=== PATIENT | male | born 1990 | race African-American/Black ===

== ENCOUNTER 2019-01-17 21:08 | Emergency (ER) | payer MEDICAID, OTHER ==
[~2019-01-17] VITALS: Ht 175.3 cm; Wt 68.0 kg
[2019-01-17 21:34] VITALS: BP_SYST 137
[2019-01-18] MEDS ORDERED: SULFAMETHOXAZOLE/TRIMETHOPR DS 1 TABLET PO ONE
[2019-01-18] MEDS ORDERED: IBUPROFEN 800 MG TABLET PO ONE
[2019-01-18 00:15] VITALS: BP_SYST 137
== END 2019-01-18 00:15 | disposition home or self-care (01) ==
LOC: SED 21:08
DX: L08.89 Other specified local infections of the skin and subcutaneous tissue (principal); F17.200 Nicotine dependence, unspecified, uncomplicated; R03.0 Elevated blood-pressure reading, without diagnosis of hypertension; Z71.6 Tobacco abuse counseling
CPT/HCPCS: 99283

== ENCOUNTER 2019-01-21 00:35 | Emergency (ER) | payer OTHER ==
[~2019-01-21] VITALS: Ht 175.3 cm; Wt 68.0 kg
[2019-01-21 00:40] VITALS: BP_SYST 151
== END 2019-01-21 01:45 | disposition left against medical advice (07) ==
LOC: SED 00:35
DX: L03.113 Cellulitis of right upper limb (principal); Z53.21 Procedure and treatment not carried out due to patient leaving prior to being seen by health care provider

== ENCOUNTER 2019-01-30 12:09 | Emergency (ER) | payer OTHER ==
[~2019-01-30] VITALS: Ht 175.3 cm; Wt 68.0 kg
[2019-01-30 12:10] VITALS: BP_SYST 149
--- NOTE | 2019-01-30 12:10 | NUR ---
Patient triaged and placed in waiting room. VSS and patient appears in no acute distress at this time. Accompanied by FRIEND, awaiting available bed, and MD notified of need for MSE.
--- NOTE | 2019-01-30 12:59 | NUR ---
BROUGHT BACK TO BED #6 AND REPORT GIVEN TO RON
--- NOTE | 2019-01-30 13:03 | NUR ---
FOOD OFFERED TO PT. PT GIVEN MEAL
--- NOTE | 2019-01-30 13:30 | NUR ---
Patient awake, alert, oriented x 4. Patient brought in by self. Patient is homeless. Patient came in for right index finger swelling and pain. Patient reports 10/10 throbbing, aching pain and numbness in right index finger. Patient reports taking Bactrim, stopped two days ago because he was unable to get prescription refilled. No signs or symptoms of distress noted.
--- NOTE | 2019-01-30 13:54 | NUR ---
SILVIA Hurtado at bedside examining patient.
[2019-01-30] MEDS ORDERED: CLINDAMYCIN 300 MG in D5W 50 ML IV ONE (14:15)
[2019-01-30] MEDS ORDERED: NS 1000 ML IV.SOLN IV ONE (14:15)
[2019-01-30] MEDS ORDERED: GENTAMICIN 80 mg/100 mL NS 100 ML IV ONE (14:15)
--- NOTE | 2019-01-30 14:30 | NUR ---
Patient walked out. Girlfriend at bedside says "He just left. I don't know where he went." Waiting to see if he went out only for a cigarette. aware.
--- NOTE | 2019-01-30 14:40 | NUR ---
X-ray came looking for patient. Informed them that patient is not here at this time.
--- NOTE | 2019-01-30 14:45 | NUR ---
Phlebotomy came looking for patient. Informed them that patient is not here at this time.
== END 2019-01-30 14:50 | disposition left against medical advice (07) ==
LOC: SED 12:09
DX: L03.011 Cellulitis of right finger (principal); F17.200 Nicotine dependence, unspecified, uncomplicated; Z71.6 Tobacco abuse counseling; Z53.20 Procedure and treatment not carried out because of patient's decision for unspecified reasons
CPT/HCPCS: 36415; 99281

== ENCOUNTER 2019-01-30 21:23 | Inpatient (IN) | payer OTHER ==
[~2019-01-30] VITALS: Ht 175.3 cm; Wt 74.6 kg
[2019-01-30 21:25] VITALS: BP_SYST 147
[2019-01-30] MEDS ORDERED: PIPERACILLIN/TAZO 3.375 GM in NS 50 ML IV ONE (22:00)
[2019-01-30] MEDS ORDERED: NACL 0.9% 1,000 ML IV ONE (22:00)
[2019-01-30 22:26] LABS: BASOPHILS % (AUTO) 0.3 % (0.0-2.0); EOSINOPHILS # (AUTO) 0.3 K/uL (0.0-0.4); EOSINOPHILS % (AUTO) 2.8 % (0.0-4.0); HEMATOCRIT 35.8 % (36-54); HEMOGLOBIN 12.1 g/dL (14.0-18.0); LYMPHOCYTES # (AUTO) 1.7 K/uL (1.0-5.5); LYMPHOCYTES % (AUTO) 17.9 % (20.5-51.5); MEAN CORPUSCULAR HEMOGLOBIN 25 pg (27-31); MEAN CORPUSCULAR HGB CONC 34 % (32-36); MEAN CORPUSCULAR VOLUME 75 fL (79.0-98.0); MONOCYTES # (AUTO) 0.5 K/uL (0.0-1.0); MONOCYTES % (AUTO) 5.3 % (1.7-9.3); NEUTROPHILS # (AUTO) 6.8 K/uL (1.8-7.7); NEUTROPHILS % (AUTO) 73.7 % (40.0-70.0); PLATELET COUNT (AUTO) 304 K/uL (130-430); RED CELL DISTRIBUTION WIDTH 17.7 % (9.0-15.0); WHITE BLOOD COUNT (AUTO) 9.2 K/uL (4.8-10.8)
[2019-01-30] MEDS ORDERED: MORPHINE 4 MG/ML INJ. SYRINGE IVP ONE (22:30)
[2019-01-30 22:43] LABS: CALCIUM 9.4 mg/dL (8.4-11.0); CREATININE 1.25 mg/dL (0.55-1.30); POTASSIUM 3.7 mmol/L (3.5-5.1)
[2019-01-30 22:48] LABS: ALBUMIN 3.4 g/dL (3.4-4.8); TOTAL BILIRUBIN 0.2 mg/dL (0.0-1.0)
[2019-01-30] MEDS ORDERED: HYDROcodone/ACETAMIN 5-325 MG TAB (NORCO/ VICODIN) PO PRN (23:45)
[2019-01-30] MEDS ORDERED: ACETAMINOPHEN 325 MG TABLET PO PRN (23:45)
[2019-01-31 00:16] VITALS: BP_SYST 148
[2019-01-31] MEDS: CLINDAMYCIN 600 mg/50mL D5W 50 ML IV SCH ×2 (00:54→05:02)
[2019-01-31] MEDS ORDERED: CLINDAMYCIN 600 mg/50mL D5W 100 ML IV ONE (00:54)
[2019-01-31 07:35] VITALS: BP_SYST 133
[2019-01-31] MEDS: HYDROcodone/ACETAMIN 10-325 MG TAB PO PRN ×3 (09:01→22:13)
[2019-01-31] MEDS: AMPICILLIN SODIUM/SULBACTAM NA 3 GM in NS 100 ML IV SCH ×3 (11:37→23:21)
[2019-01-31 12:46] VITALS: BP_SYST 134
[2019-01-31 16:24] VITALS: BP_SYST 116
[2019-01-31 20:00] VITALS: BP_SYST 132
[2019-02-01 01:31] VITALS: BP_SYST 128
[2019-02-01] MEDS: AMPICILLIN SODIUM/SULBACTAM NA 3 GM in NS 100 ML IV SCH (05:17)
[2019-02-01 08:05] VITALS: BP_SYST 126
[2019-02-01] MEDS: HYDROcodone/ACETAMIN 10-325 MG TAB PO PRN ×2 (10:10→20:42)
[2019-02-01 11:11] VITALS: BP_SYST 114
[2019-02-01 12:55] LABS: BASOPHILS # (AUTO) 0.1 K/uL (0.0-0.2); BASOPHILS % (AUTO) 0.9 % (0.0-2.0); EOSINOPHILS # (AUTO) 0.5 K/uL (0.0-0.4); EOSINOPHILS % (AUTO) 6.6 % (0.0-4.0); HEMATOCRIT 37.8 % (36-54); HEMOGLOBIN 12.8 g/dL (14.0-18.0); LYMPHOCYTES # (AUTO) 2.1 K/uL (1.0-5.5); LYMPHOCYTES % (AUTO) 24.6 % (20.5-51.5); MEAN CORPUSCULAR HEMOGLOBIN 26 pg (27-31); MEAN CORPUSCULAR HGB CONC 34 % (32-36); MEAN CORPUSCULAR VOLUME 76 fL (79.0-98.0); MONOCYTES # (AUTO) 0.6 K/uL (0.0-1.0); MONOCYTES % (AUTO) 6.8 % (1.7-9.3); NEUTROPHILS # (AUTO) 5.1 K/uL (1.8-7.7); NEUTROPHILS % (AUTO) 61.1 % (40.0-70.0); PLATELET COUNT (AUTO) 288 K/uL (130-430); RED BLOOD CELL COUNT(AUTO) 4.99 MIL/uL (4.2-6.2); RED CELL DISTRIBUTION WIDTH 18.4 % (9.0-15.0); WHITE BLOOD COUNT (AUTO) 8.3 K/uL (4.8-10.8)
[2019-02-01 13:06] LABS: CALCIUM 9.1 mg/dL (8.4-11.0); CREATININE 1.13 mg/dL (0.55-1.30); POTASSIUM 3.8 mmol/L (3.5-5.1)
[2019-02-01] MEDS: PIPERACILLIN/TAZO 3.375/DEX-IS 50 ML IV SCH ×3 (13:36→23:34)
[2019-02-01 15:59] VITALS: BP_SYST 122
[2019-02-01 20:00] VITALS: BP_SYST 116
[2019-02-02] VITALS: BP_SYST 126
[2019-02-02] MEDS: HYDROcodone/ACETAMIN 10-325 MG TAB PO PRN ×2 (03:45→12:24)
[2019-02-02] MEDS: PIPERACILLIN/TAZO 3.375/DEX-IS 50 ML IV SCH ×3 (05:27→17:34)
[2019-02-02 08:00] VITALS: BP_SYST 119
[2019-02-02 12:00] VITALS: BP_SYST 129
[2019-02-02 13:00] VITALS: BP_SYST 110
[2019-02-02 16:00] VITALS: BP_SYST 110
== END 2019-02-02 19:15 | disposition short-term general hospital (02) | DRG 351 ==
LOC: SED 21:23 → SMU 23:48
PROVIDERS: ADMIT Internal Medicine; ATTEND Internal Medicine
DX: M79.5 Residual foreign body in soft tissue (principal); M86.8X4 Other osteomyelitis, hand; L03.011 Cellulitis of right finger; Z60.2 Problems related to living alone
CPT/HCPCS: 36415; 73140-TC; 80048; 80053; 83605; 85025; 87040-TC; 96375; 99285; J0295; J1956; J2270; J2543; J3490; J7030

== ENCOUNTER 2019-02-08 23:15 | Emergency (ER) | payer OTHER ==
[~2019-02-08] VITALS: Ht 175.3 cm; Wt 68.0 kg
--- NOTE | 2019-02-08 23:19 | NUR ---
Patient to ER bed 4 to gown for evaluation. Side rails up.
[2019-02-08 23:25] VITALS: BP_SYST 132
--- NOTE | 2019-02-08 23:30 | NUR ---
2330 - Assumed care of pt. Pt seen here previously for right hand 2nd digit cellulitis. Pt states condition has improved since previous visit, but has had difficulty finding follow up care. Pt to soak finger in normal saline/betadine solution.
--- NOTE | 2019-02-08 23:30 | NUR ---
2330 - ER at bedside examining patient.
[2019-02-08] MEDS ORDERED: BACITRACIN 1 GM OINT TP ONE ×2 (23:45→23:58)
[2019-02-09 00:09] VITALS: BP_SYST 132
--- NOTE | 2019-02-09 00:09 | NUR ---
0009 - Patient given written and verbal discharge instructions and verbalizes understanding. ER MD discussed with patient the results and treatment provided. Patient in stable condition. ID arm band removed. IV catheter removed intact and dressing applied, no active bleeding. Rx of mupirocin given. Patient educated on pain management and to follow up with PMD. Opportunity for questions provided and answered. Medication side effect fact sheet provided.
== END 2019-02-09 00:09 | disposition home or self-care (01) ==
LOC: SED 23:15
DX: L03.011 Cellulitis of right finger (principal)
CPT/HCPCS: 99283

== ENCOUNTER 2019-02-16 14:07 | Emergency (ER) | payer OTHER ==
[~2019-02-16] VITALS: Ht 175.3 cm; Wt 68.0 kg
[2019-02-16 14:20] VITALS: BP_SYST 121
[2019-02-16 14:56] VITALS: BP_SYST 121
== END 2019-02-16 14:55 | disposition home or self-care (01) ==
LOC: SED 14:07
DX: L02.511 Cutaneous abscess of right hand (principal); L03.011 Cellulitis of right finger
CPT/HCPCS: 99283

== ENCOUNTER 2019-03-15 14:16 | Emergency (ER) | payer OTHER ==
[~2019-03-15] VITALS: Ht 175.3 cm; Wt 63.5 kg
[2019-03-15 14:17] VITALS: BP_SYST 151
[2019-03-15 17:05] VITALS: BP_SYST 140
[2019-03-15] MEDS ORDERED: BACITRACIN 1 GM OINT TP ONE (17:20)
== END 2019-03-15 17:05 | disposition left against medical advice (07) ==
LOC: SED 14:16
DX: S62.630A Displaced fracture of distal phalanx of right index finger, initial encounter for closed fracture (principal); M86.8X4 Other osteomyelitis, hand; L03.011 Cellulitis of right finger; R03.0 Elevated blood-pressure reading, without diagnosis of hypertension; X58.XXXA Exposure to other specified factors, initial encounter; Y93.89 Activity, other specified; Y92.89 Other specified places as the place of occurrence of the external cause; Y99.8 Other external cause status
CPT/HCPCS: 73140-TC; 99283

== ENCOUNTER 2019-05-30 21:56 | Emergency (ER) | payer OTHER ==
[~2019-05-30] VITALS: Ht 175.3 cm; Wt 72.6 kg
[2019-05-30 22:00] VITALS: BP_SYST 135
[2019-05-31 00:50] VITALS: BP_SYST 122
== END 2019-05-31 00:50 | disposition home or self-care (01) ==
LOC: SED 21:56
DX: B86 Scabies (principal); L03.012 Cellulitis of left finger
CPT/HCPCS: 99283

== ENCOUNTER 2019-10-30 22:32 | Emergency (ER) | payer SELFPAY ==
[~2019-10-30] VITALS: Ht 175.3 cm; Wt 81.6 kg
[2019-10-30 23:30] VITALS: BP_SYST 147
--- NOTE | 2019-10-31 03:06 | NUR ---
Per paper control clerk, pt LWBS.
--- NOTE | 2019-10-31 03:06 | NUR ---
Patient left without being seen. No further treatment provided. ER MD aware
== END 2019-10-31 03:06 | disposition left against medical advice (07) ==
LOC: SED 22:32
DX: N39.0 Urinary tract infection, site not specified (principal); Z53.21 Procedure and treatment not carried out due to patient leaving prior to being seen by health care provider

== ENCOUNTER 2019-11-18 11:11 | Emergency (ER) | payer OTHER ==
[~2019-11-18] VITALS: Ht 180.3 cm; Wt 78.0 kg
--- NOTE | 2019-11-18 11:20 | NUR ---
PT SEEN IN TRAGE BY
[2019-11-18 11:22] VITALS: BP_SYST 121
--- NOTE | 2019-11-18 11:22 | NUR ---
PT PRESENTS TO ED C/O POSSIBLE SCABIES.
[2019-11-18 12:00] VITALS: BP_SYST 121
--- NOTE | 2019-11-18 12:00 | NUR ---
Patient given written and verbal discharge instructions and verbalizes understanding. ER MD discussed with patient the results and treatment provided. Patient in stable condition. ID arm band removed. Rx of PERMETHRIN CREAM given. Patient educated on pain management and to follow up with PMD. Pain Scale 0 Opportunity for questions provided and answered. Medication side effect fact sheet provided. PT LEFT W/O ACI AND RX
== END 2019-11-18 12:00 | disposition home or self-care (01) ==
LOC: SED 11:11
DX: B86 Scabies (principal)
CPT/HCPCS: 99282

== ENCOUNTER 2019-12-07 02:58 | Emergency (ER) | payer OTHER ==
[~2019-12-07] VITALS: Ht 175.3 cm; Wt 72.6 kg
[2019-12-07 03:24] VITALS: BP_SYST 155
[2019-12-07 03:42] LABS: BILIRUBIN,URINE NEGATIVE (NEGATIVE); CLARITY/URINE CLEAR (CLEAR); COLOR,URINE YELLOW (YELLOW); GLUCOSE,URINE NEGATIVE (NEGATIVE); KETONES,URINE NEGATIVE (NEGATIVE); LEUKOCYTE ESTERASE ,URINE 2+ (NEGATIVE); NITRITE, URINE NEGATIVE (NEGATIVE); PROTEIN URINE NEGATIVE (NEGATIVE); UROBILINOGEN,URINE 0.2 (0.2-1.0)
[2019-12-07 03:46] LABS: BLOOD, URINE TRACE (NEGATIVE)
[2019-12-07 03:48] LABS: BACTERIA,URINE FEW /HPF (None Seen); WBC,URINE 50-80 /HPF (0-3)
[2019-12-07] MEDS ORDERED: AZITHROMYCIN 250 MG TABLET PO ONE (04:30)
[2019-12-07] MEDS ORDERED: PENICILLIN G BENZATHINE 1.2 MMU/2 ML SYR IM ONE (04:30)
[2019-12-07] MEDS ORDERED: cefTRIAXone 0.75 GM in LIDOCAINE 1%, 20 ML MDV 2.1 ML IM ONE (04:30)
[2019-12-07 05:00] VITALS: BP_SYST 139
== END 2019-12-07 05:00 | disposition home or self-care (01) ==
LOC: SED 02:58
DX: N34.2 Other urethritis (principal); F17.210 Nicotine dependence, cigarettes, uncomplicated
CPT/HCPCS: 81000; 87086; 96372; 99283; J0561; J0696; J2001; Q0144

== ENCOUNTER 2019-12-27 04:13 | Emergency (ER) | payer MEDICAID, OTHER ==
[~2019-12-27] VITALS: Ht 175.3 cm; Wt 72.6 kg
[2019-12-27 04:15] VITALS: BP_SYST 119
--- NOTE | 2019-12-27 04:18 | NUR ---
Patient to ER bed 8 to gown for evaluation. Side rails up. Report given to JILLIAN SOLIS.
--- NOTE | 2019-12-27 04:20 | NUR ---
Patient complaining of possible insect bite to left shoulder x 3 days with mild swelling. Patient reports itchy and painful. Pain 4/10. Afebrile. No other complaints/injuries per patient or as noted. will continue to monitor.
--- NOTE | 2019-12-27 04:24 | NUR ---
ER Dr. Curry at bedside examining patient.
[2019-12-27 04:30] VITALS: BP_SYST 119
--- NOTE | 2019-12-27 04:30 | NUR ---
Patient given written and verbal discharge instructions and verbalizes understanding. ER MD discussed with patient the results and treatment provided. Patient in stable condition. ID arm band removed. Rx of Keflex and hydrocortisone cream given. Patient educated on pain management and to follow up with PMD. Pain Scale 0/10 Opportunity for questions provided and answered. Medication side effect fact sheet provided.
== END 2019-12-27 04:30 | disposition home or self-care (01) ==
LOC: SED 04:13
DX: R21 Rash and other nonspecific skin eruption (principal)
CPT/HCPCS: 99283

== ENCOUNTER 2020-03-13 15:10 | Emergency (ER) | payer SELFPAY ==
[~2020-03-13] VITALS: Ht 175.3 cm; Wt 72.6 kg
[2020-03-13 15:10] VITALS: BP_SYST 142
[2020-03-13] MEDS ORDERED: HYDROcodone/ACETAMIN 7.5-325 MG TAB PO ONE (15:45)
[2020-03-13] MEDS ORDERED: IBUPROFEN 800 MG TABLET PO ONE (15:45)
[2020-03-13 16:15] VITALS: BP_SYST 142
== END 2020-03-13 16:15 | disposition home or self-care (01) ==
LOC: SED 15:10
DX: S62.396A Other fracture of fifth metacarpal bone, right hand, initial encounter for closed fracture (principal); V98.8XXA Other specified transport accidents, initial encounter; Y93.89 Activity, other specified; Y92.89 Other specified places as the place of occurrence of the external cause; Y99.8 Other external cause status
CPT/HCPCS: 99283

== ENCOUNTER 2020-07-22 12:14 | Emergency (ER) | payer SELFPAY ==
[~2020-07-22] VITALS: Ht 175.3 cm; Wt 70.3 kg
[2020-07-22 12:27] VITALS: BP_SYST 143
[2020-07-22] MEDS ORDERED: HYDROcodone/ACETAMIN 5-325 MG TAB (NORCO/ VICODIN) PO ONE (12:45)
[2020-07-22 13:27] LABS: BASOPHILS % (AUTO) 0.6 % (0.0-2.0); EOSINOPHILS # (AUTO) 0.2 K/uL (0.0-0.4); EOSINOPHILS % (AUTO) 2.6 % (0.0-4.0); HEMOGLOBIN 14.1 g/dL (14.0-18.0); LYMPHOCYTES # (AUTO) 1.8 K/uL (1.0-5.5); LYMPHOCYTES % (AUTO) 24.6 % (20.5-51.5); MEAN CORPUSCULAR HEMOGLOBIN 29 pg (27-31); MEAN CORPUSCULAR HGB CONC 35 % (32-36); MEAN CORPUSCULAR VOLUME 84 fL (79.0-98.0); MONOCYTES # (AUTO) 0.8 K/uL (0.0-1.0); MONOCYTES % (AUTO) 11.5 % (1.7-9.3); NEUTROPHILS # (AUTO) 4.3 K/uL (1.8-7.7); NEUTROPHILS % (AUTO) 60.7 % (40.0-70.0); PLATELET COUNT (AUTO) 205 K/uL (130-430); RED CELL DISTRIBUTION WIDTH 15.2 % (9.0-15.0); WHITE BLOOD COUNT (AUTO) 7.1 K/uL (4.8-10.8)
[2020-07-22 13:43] LABS: C-REACTIVE PROTEIN QUANT 1.7 mg/dL (0-0.5); CALCIUM 8.9 mg/dL (8.4-11.0); CREATININE 1.6 mg/dL (0.55-1.30); POTASSIUM 3.6 mmol/L (3.5-5.1)
[2020-07-22 16:42] VITALS: BP_SYST 142
[2020-07-22] MEDS ORDERED: cephALEXin 500 MG CAPSULE PO ONE (16:45)
[2020-07-22] MEDS ORDERED: SULFAMETHOXAZOLE/TRIMETHOPR DS 1 TABLET PO ONE (16:45)
== END 2020-07-22 16:48 | disposition home or self-care (01) ==
LOC: SED 12:14
DX: L03.113 Cellulitis of right upper limb (principal); M71.9 Bursopathy, unspecified
CPT/HCPCS: 36415; 73090; 73201-TC; 80048; 85025; 86140; 93971; 99285

== ENCOUNTER 2020-07-25 09:47 | Emergency (ER) | payer MEDICAID ==
[~2020-07-25] VITALS: Ht 175.3 cm; Wt 72.6 kg
[2020-07-25 09:57] VITALS: BP_SYST 135
[2020-07-25] MEDS ORDERED: cefTRIAXone 1 GM in D5W 50 ML IV ONE (10:30)
[2020-07-25] MEDS ORDERED: NS 1000 ML IV.SOLN IV ONE (10:30)
[2020-07-25] MEDS ORDERED: VANCOMYCIN HCL 1,000 MG in NS 250 ML IV ONE (10:30)
[2020-07-25 10:45] LABS: CALCIUM 8.6 mg/dL (8.4-11.0); CREATININE 1.33 mg/dL (0.55-1.30)
[2020-07-25] MEDS ORDERED: cefTRIAXone 1 GM VIAL ONE (10:49)
[2020-07-25] MEDS ORDERED: VANCOMYCIN HCL 1000 MG/VIAL IV ONE (10:49)
[2020-07-25 10:50] VITALS: BP_SYST 135
[2020-07-25 11:05] LABS: C-REACTIVE PROTEIN QUANT 1.4 mg/dL (0-0.5)
[2020-07-25 11:12] LABS: BASOPHILS # (AUTO) 0.1 K/uL (0.0-0.2); EOSINOPHILS # (AUTO) 0.2 K/uL (0.0-0.4); HEMATOCRIT 38.8 % (36-54); HEMOGLOBIN 13.4 g/dL (14.0-18.0); LYMPHOCYTES # (AUTO) 1.3 K/uL (1.0-5.5); LYMPHOCYTES % (AUTO) 15.8 % (20.5-51.5); MEAN CORPUSCULAR HEMOGLOBIN 29 pg (27-31); MEAN CORPUSCULAR HGB CONC 34 % (32-36); MEAN CORPUSCULAR VOLUME 83 fL (79.0-98.0); MONOCYTES # (AUTO) 0.5 K/uL (0.0-1.0); NEUTROPHILS % (AUTO) 74.2 % (40.0-70.0); PLATELET COUNT (AUTO) 209 K/uL (130-430); RED BLOOD CELL COUNT(AUTO) 4.69 MIL/uL (4.2-6.2); RED CELL DISTRIBUTION WIDTH 15.2 % (9.0-15.0); WHITE BLOOD COUNT (AUTO) 8.1 K/uL (4.8-10.8)
[2020-07-25 11:13] LABS: PROTHROMBIN TIME 10.1 SECS (9.5-12.5)
== END 2020-07-25 10:50 | disposition left against medical advice (07) ==
LOC: SED 09:47
DX: L03.113 Cellulitis of right upper limb (principal); M70.21 Olecranon bursitis, right elbow; Y93.89 Activity, other specified
CPT/HCPCS: 36415; 73070; 80048; 82550; 85025; 85610; 86140; 99284; J0696; J3370

== ENCOUNTER 2021-06-17 04:41 | Emergency (ER) | payer MEDICAID, SELFPAY ==
[~2021-06-17] VITALS: Ht 175.3 cm; Wt 72.6 kg
[~2021-06-17 04:41] MED LIST: ALBMDI INH; ATRMDI INH; FLO44 INH; ZIT250 PO; [UNRECOGNIZED DRUG - CODE] PO
--- NOTE | 2021-06-17 04:44 | NUR ---
Patient to ER bed 6 to gown for evaluation. Side rails up. Report given to IRMA Victoria.
--- NOTE | 2021-06-17 04:45 | NUR ---
Came in ER per anjelica brought by [facility] paramedics from home this 31 year old, AAOX4, breathing spontaneously at room air, not in distress noted, With chief complaints of shortness of breathe, cough since in the morning yesterday, known with Asthma, breathing treatment given by paramedics orior to ER. No known allergy, Vital signs stable
--- NOTE | 2021-06-17 04:47 | NUR ---
Covid damaris test done and sent to lab
[2021-06-17 04:53] VITALS: BP_SYST 150
--- NOTE | 2021-06-17 05:11 | NUR ---
Chest Xray done at bedside
--- NOTE | 2021-06-17 05:44 | NUR ---
Refused for blood test, Dr. Vila made aware
--- NOTE | 2021-06-17 05:52 | NUR ---
Seen and examined by Dr. Vila, ER Attending
[2021-06-17] MEDS ORDERED: predniSONE 20 MG TABLET PO ONE (06:00)
[2021-06-17] MEDS ORDERED: IPRATROPIUM/ALBUTEROL SULFATE 3 ML AMPUL.NEB (DUONEB) INH ONE (06:00)
--- NOTE | 2021-06-17 06:00 | NUR ---
Medication given as ordered, health teaching provided and verbalized understanding. Breathing treatment given by RT
--- NOTE | 2021-06-17 07:10 | NUR ---
Endorsed to day shift IRMA Castle in stable condition for continuity of care
[2021-06-17] MEDS ORDERED: PRED20TA PO (07:14)
[2021-06-17] MEDS ORDERED: ALBMDI INH (07:14)
--- NOTE | 2021-06-17 07:29 | NUR ---
CALM, ALERT, STATED FEELING MUCH BETTER AND READY TO GO HOME, PT CALLED FRIEND FOR TRANSPORTATION
[2021-06-17 07:30] VITALS: BP_SYST 141
--- NOTE | 2021-06-17 07:32 | NUR ---
Patient given written and verbal discharge instructions and verbalizes understanding. ER MD discussed with patient the results and treatment provided. Patient in stable condition. ID arm band removed. . Patient educated on pain management and to follow up with PMD. Pain Scale 0/10 Opportunity for questions provided and answered.
== END 2021-06-17 07:30 | disposition home or self-care (01) ==
LOC: SED 04:41
DX: J45.901 Unspecified asthma with (acute) exacerbation (principal); Z20.822 Contact with and (suspected) exposure to COVID-19; Z79.899 Other long term (current) drug therapy
CPT/HCPCS: 71045; 87426; 94640; 99284; J7512; 36415; 99283

== ENCOUNTER 2021-12-15 16:25 | Emergency (ER) | payer MEDICAID, SELFPAY ==
[~2021-12-15] VITALS: Ht 175.3 cm; Wt 72.6 kg
[2021-12-15 16:25] VITALS: BP_SYST 177
[~2021-12-15 16:25] MED LIST changes: +PRED20TA PO
--- NOTE | 2021-12-15 16:25 | NUR ---
Placed in room 8 . Placed on athletic monitor, blood pressure machine and pulse oximeter. To gown for exam. Side rails up. Report given to IRMA BRYAN.
--- NOTE | 2021-12-15 16:31 | NUR ---
PT COMES TO ER WITH C/O WITH SEVERE SOB, PT TACHYPNIC @ 28 BREATHS/MIN, USING ACCESORY MUSCLES, SHORT 2-3 WORD SENTENCES. 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 DID NOT USE ANY INHALER MEDS AT HOME. HAS HISTORY OF ASTHMA AND STATES HE COMES HERE OFTEN FOR SAME THING.
[2021-12-15] MEDS ORDERED: methylPREDNISolone SOD SUCC/PF 62.5 MG/ML VIAL IVP ONE (16:45)
[2021-12-15] MEDS ORDERED: IPRATROPIUM/ALBUTEROL SULFATE 3 ML AMPUL.NEB (DUONEB) INH ONE (16:45)
[2021-12-15] MEDS ORDERED: ALBUTEROL SULFATE 0.083% 2.5 MG/3 ML VIAL.NEB INH ONE ×2 (17:00→17:15)
[2021-12-15] MEDS ORDERED: MAGNESIUM SULFATE 50 ML IV ONE (17:15)
--- NOTE | 2021-12-15 17:16 | NUR ---
PT INCREASINGLY MORE SOB, PALE , DIAPHORETIC, TACHYPNIC AT 46 BREATHS/MIN. DR MARKHAM MADE AWARE, RT PAGED. NEW ORDERS RECEIVED. WILL CONT TO MONITOR CLOSELY. FRIEND AT BEDSIDE.
--- NOTE | 2021-12-15 19:18 | NUR ---
Report received from IRMA Griffin for continuation of care
--- NOTE | 2021-12-15 20:20 | NUR ---
Dr Mondragon at bedside speaking with pt
[2021-12-15] MEDS ORDERED: ALBU8.5H8 INH (20:58)
[2021-12-15] MEDS ORDERED: ALBU2.5V7 INH (20:58)
[2021-12-15] MEDS ORDERED: PRED20TA PO (20:58)
--- NOTE | 2021-12-15 21:17 | NUR ---
Pt leaving AMA. Pt awake a/o x4. Explained risks and benefits, pt verbalized understanding. Pt still noted with increased work of breathing. Pt still wants to leave ama. rx to be filled. to follow up with pmd within the next 1-2 days or return to ed if condition worsens. iv d/c'd with no s/sx of complications noted. iv catheter intact. ambulatory with steady gait accompanied by personnel placement specialist.
[2021-12-15 21:20] VITALS: BP_SYST 163
== END 2021-12-15 21:19 | disposition left against medical advice (07) ==
LOC: SED 16:25
DX: J45.901 Unspecified asthma with (acute) exacerbation (principal); Z79.899 Other long term (current) drug therapy; Z20.822 Contact with and (suspected) exposure to COVID-19; F17.210 Nicotine dependence, cigarettes, uncomplicated; Z71.6 Tobacco abuse counseling
CPT/HCPCS: 36415; 71045; 87426; 94640; 96365; 96375; 99291; J2930; J3475; J7613

== ENCOUNTER 2022-02-06 15:14 | Emergency (ER) | payer MEDICAID ==
[~2022-02-06] VITALS: Ht 175.3 cm; Wt 68.0 kg
[~2022-02-06 15:14] MED LIST changes: +ALBU2.5V7 INH; +ALBU8.5H8 INH
[2022-02-06 15:29] VITALS: BP_SYST 154
--- NOTE | 2022-02-06 16:35 | NUR ---
Called for Pt to come back to the ER and there was no answer in the ER lobby or outside.
--- NOTE | 2022-02-06 16:55 | NUR ---
No answer in ER lobby.
== END 2022-02-06 16:55 | disposition left against medical advice (07) ==
LOC: SED 15:14
DX: S40.862A Insect bite (nonvenomous) of left upper arm, initial encounter (principal); Z53.21 Procedure and treatment not carried out due to patient leaving prior to being seen by health care provider

== ENCOUNTER 2022-04-11 20:05 | Emergency (ER) | payer MEDICAID ==
[~2022-04-11] VITALS: Ht 175.3 cm; Wt 68.0 kg
[2022-04-11 20:05] VITALS: BP_SYST 150
--- NOTE | 2022-04-11 20:05 | NUR ---
Patient triaged and placed in waiting room. VSS and patient appears in no acute distress at this time. Accompanied by SELF, awaiting available bed, and MD notified of need for MSE. PATIENT COMPLAINING OF LEFT ABSCESS TO FACE X 3 DAYS. UNABLE TO EAT. HAS BEEN TREATING SELF WITH EXCEDRIN AND TYLENOL.
--- NOTE | 2022-04-11 21:20 | NUR ---
DR. ANG LOOKED FOR PATIENT AND UNABLE TO LOCATE. WILL ATTEMPT TO PLACE PATIENT AGAIN.
[2022-04-11] MEDS ORDERED: cefTRIAXone 1 GM in LIDOCAINE 1%, 20 ML MDV 2.1 ML IM ONE (21:30)
--- NOTE | 2022-04-11 22:10 | NUR ---
PATIENT CALLED FOR BED PLACEMENT. PATIENT NOT IN WAITING ROOM.
--- NOTE | 2022-04-12 00:03 | NUR ---
PATIENT NOT IN WAITING ROOM. PATIENT LEFT WITHOUT BEING SEEN
== END 2022-04-12 00:03 | disposition left against medical advice (07) ==
LOC: SED 20:05
DX: R22.0 Localized swelling, mass and lump, head (principal); Z53.21 Procedure and treatment not carried out due to patient leaving prior to being seen by health care provider

== ENCOUNTER 2022-04-19 03:54 | Emergency (ER) | payer MEDICAID ==
[~2022-04-19] VITALS: Ht 175.3 cm; Wt 68.0 kg
[2022-04-19 03:55] VITALS: BP_SYST 190
--- NOTE | 2022-04-19 03:55 | NUR ---
Placed in room 5 . Placed on playground monitor, blood pressure machine and pulse oximeter. To gown for exam. Side rails up. Report given to Jony SOLIS.
[2022-04-19] MEDS ORDERED: IPRATROPIUM/ALBUTEROL SULFATE 3 ML AMPUL.NEB (DUONEB) INH ONE (04:00)
[2022-04-19] MEDS ORDERED: methylPREDNISolone SOD SUCC/PF 62.5 MG/ML VIAL IVP ONE (04:00)
--- NOTE | 2022-04-19 04:11 | NUR ---
PT BIBA WITH COMPLAINTS OF SOB, PT HAS HX OF ASTHMA. PT IS AOX4. RECIEVED ALBUTOROL TREATMENT IN AMBULANCE, REFUSED BREATHING TREATMENT HERE. DR ANG MADE AWARE. PT WILL ADV WHEN HE IS READY FOR THE BREATHING TREATMENT O2 SAT IS 95. VS WITHIN NORMAL LIMITS. PT IS IN BED WITH BED LOWERD LOCK AND RAILS UP. PT IS HOMELESS AND RESIDES IN HOMELESS ENCAMPMENT BY FREEWAY ACCORDING TO EMT
[2022-04-19 05:38] VITALS: BP_SYST 153
[2022-04-19] MEDS ORDERED: NACL 0.9% 1,000 ML IV ONE (05:45)
[2022-04-19 05:54] LABS: BARBITURATE, URINE NEGATIVE (NEG <=200); BENZODIAZEPINE, URINE NEGATIVE (NEG <=150); CANNABINOID, URINE NEGATIVE (NEG <=50); COCAINE, URINE NEGATIVE (NEG <=150); METHAMPHETAMINES SCREEN,URINE POSITIVE (NEG <=500); OPIATE, URINE NEGATIVE (NEG <=100); PHENCYCLIDINE SCREEN,URINE NEGATIVE (NEG <=25); UR TRICYCLIC ANTIDEPRESSANTS NEGATIVE (NEG <=300); URINE AMPHETAMINE POSITIVE (NEG <=500); URINE METHADONE NEGATIVE (NEG <=200); URINE OXYCODONE SCREEN NEGATIVE (NEG <=100); URINE PROPOXYPHENE SCREEN NEGATIVE (NEG <=300)
[2022-04-19] MEDS ORDERED: ALBU8.5H8 INH (05:55)
[2022-04-19] MEDS ORDERED: PRED20TA PO (05:55)
--- NOTE | 2022-04-19 07:25 | NUR ---
A/OX4 VSS, RESPIRATIONS EVEN NON LABORED, APPEARS TO BE IN NO ACUTE DISTRESS NOTED A AT THIS TIME
--- NOTE | 2022-04-19 07:46 | NUR ---
Patient given written and verbal discharge instructions and verbalizes understanding. ER MD discussed with patient the results and treatment provided. Patient in stable condition. ID arm band removed. Opportunity for questions provided and answered. Medication side effect fact sheet provided.
--- NOTE | 2022-04-19 07:46 | NUR ---
A/OX4 VSS VERBALIZED UNDERSTANDING OF DC INSTRUCTIONS, RESPIRATIONS EVEN NON LABORED, AMBULATED WITH STEADY GAIT.
== END 2022-04-19 07:46 | disposition home or self-care (01) ==
LOC: SED 03:54
DX: J45.901 Unspecified asthma with (acute) exacerbation (principal); R05.9 Cough, unspecified; F15.229 Other stimulant dependence with intoxication, unspecified; Z79.899 Other long term (current) drug therapy
CPT/HCPCS: 80307; 96361; 96374; 99283; J2930; J7030

== ENCOUNTER 2022-04-30 06:03 | Inpatient (IN) | payer MEDICAID ==
[~2022-04-30] VITALS: Ht 177.8 cm; Wt 67.6 kg
--- NOTE | 2022-04-30 06:03 | NUR ---
[facility] #[id number]. REPORT FROM LOGGING SUPERVISOR. PT C/O SOB X2 DAYS ALBUTERAL INH NOT HELPING. HX ASTHMA HERION USE" A LONG TIME AGO". PT APPEARS ANXIOS, DYSPNEA ALB HHN PER MEDIC X1. SAO2-77% ON ROOM AIR ON ARRIVAL.
[2022-04-30 06:06] VITALS: BP_SYST 172
[2022-04-30] MEDS ORDERED: ALBUTEROL SULFATE 0.083% 2.5 MG/3 ML VIAL.NEB INH ONE ×2 (06:06→08:08)
[2022-04-30] MEDS ORDERED: MAGNESIUM SULFATE 50 ML IV ONE (06:15)
[2022-04-30] MEDS ORDERED: IPRATROPIUM/ALBUTEROL SULFATE 3 ML AMPUL.NEB (DUONEB) INH ONE (06:15)
[2022-04-30] MEDS ORDERED: methylPREDNISolone SOD SUCC/PF 62.5 MG/ML VIAL IVP ONE (06:15)
[2022-04-30] MEDS ORDERED: ALBMDI INH (06:18)
[2022-04-30] MEDS ORDERED: KETAMINE 30 MG/3 ML SYRINGE IVP ONE (06:30)
[2022-04-30] MEDS ORDERED: LORazepam 2 MG/ML VIAL IM ONE (06:30)
[2022-04-30] MEDS ORDERED: SUCCINYLCHOLINE CHLORIDE 20 MG/ML(QUELICIN) ONE ×2 (06:42→06:50)
[2022-04-30] MEDS ORDERED: EPINEPHrine JECT 0.1 MG/ML SYR ONE (06:43)
[2022-04-30] MEDS ORDERED: EPINEPHRINE HCL/PF 1 MG/ML AMP ONE ×2 (06:44→06:45)
--- NOTE | 2022-04-30 07:00 | NUR ---
REJI RN PT APPEARS LESS ANXIOS/ RESTLESS. LUNG SOUNDS IMPROVING / RT TECH. VSS ON BIPAP FIO2 @100%. RESP 27 CONTINUED MONITORING
[2022-04-30] MEDS ORDERED: EPINEPHRINE HCL/PF 1 MG/ML AMP IM ONE (07:15)
--- NOTE | 2022-04-30 07:29 | NUR ---
REPORT RECEIVED, PT WITH EYES CLOSED, ON BIPAP-TOLERATING FAIRLY. RATE 20 AT FIO2-100% /6 @100%. RT AT BEDSIDE, ABG'S TO BE DRAWN. SAFETY PRECAUTIONS IN PLACE. WILL CONT TO MONITOR .
[2022-04-30 08:14] LABS: BASOPHILS % (AUTO) 0.2 % (0.0-2.0); EOSINOPHILS # (AUTO) 0.4 K/uL (0.0-0.4); EOSINOPHILS % (AUTO) 3.2 % (0.0-4.0); HEMATOCRIT 39.1 % (36-54); HEMOGLOBIN 13.4 g/dL (14.0-18.0); LYMPHOCYTES # (AUTO) 0.9 K/uL (1.0-5.5); LYMPHOCYTES % (AUTO) 6.1 % (20.5-51.5); MEAN CORPUSCULAR HEMOGLOBIN 28 pg (27-31); MEAN CORPUSCULAR HGB CONC 34 % (32-36); MEAN CORPUSCULAR VOLUME 82 fL (79.0-98.0); MONOCYTES # (AUTO) 0.7 K/uL (0.0-1.0); MONOCYTES % (AUTO) 4.6 % (1.7-9.3); NEUTROPHILS # (AUTO) 12.1 K/uL (1.8-7.7); NEUTROPHILS % (AUTO) 85.9 % (40.0-70.0); PLATELET COUNT (AUTO) 200 K/uL (130-430); RED BLOOD CELL COUNT(AUTO) 4.78 MIL/uL (4.2-6.2); RED CELL DISTRIBUTION WIDTH 14.2 % (9.0-15.0); WHITE BLOOD COUNT (AUTO) 14.1 K/uL (4.8-10.8)
[2022-04-30 08:38] LABS: CALCIUM 7.8 mg/dL (8.4-11.0); CREATININE 1.05 mg/dL (0.55-1.30); POTASSIUM 4.2 mmol/L (3.5-5.1)
[2022-04-30] MEDS ORDERED: LORazepam 2 MG/ML VIAL IVP ONE (08:45)
[2022-04-30 08:46] LABS: ALBUMIN 3.3 g/dL (3.4-4.8); TOTAL BILIRUBIN 0.3 mg/dL (0.0-1.0)
--- NOTE | 2022-04-30 08:55 | NUR ---
PT FOUND TO HAVE REMOVED BIPAP, TACHYPNEIC, USING ACCESORY MUSCLES. PT URINATED ALL OVER ROOM, DR SIMPSON CALLED TO ROOM, ORDERS RECEIEVED AND MEDICATED OREDERED. HOOD CATH PLACED, URINE COLLECTED AND COVID ANA PAULA COLLECTED AND SENT TO LAB. PT ASSISTED BACK TO BED. EKG DONE.
[2022-04-30 09:33] LABS: BILIRUBIN,URINE NEGATIVE (NEGATIVE); CLARITY/URINE CLEAR (CLEAR); COLOR,URINE YELLOW (YELLOW); GLUCOSE,URINE NEGATIVE (NEGATIVE); KETONES,URINE NEGATIVE (NEGATIVE); LEUKOCYTE ESTERASE ,URINE NEGATIVE (NEGATIVE); NITRITE, URINE NEGATIVE (NEGATIVE); PROTEIN URINE NEGATIVE (NEGATIVE); UROBILINOGEN,URINE 0.2 (0.2-1.0)
--- NOTE | 2022-04-30 09:41 | NUR ---
Admit bed requested Patient will be admitted to care of . Admitted to ICU unit. Diagnosis STATUS ASTHMATICUS Inpatient (Yes or No) YES Observation (Yes or No) NO Orientation concerns or request close to nursing station (Yes or No) YES Covid Status NEGATIVE On vent or bipap BIPAP Isolation requirements NO Needs a sitter NO From Home (Yes or if No enter name of facility) HOME Requires Dialysis (Yes or No) NO Med Rec Completed (Yes of No) YES
[2022-04-30 09:45] LABS: BLOOD, URINE TRACE (NEGATIVE)
[2022-04-30 09:53] LABS: BARBITURATE, URINE NEGATIVE (NEG <=200); BENZODIAZEPINE, URINE NEGATIVE (NEG <=150); CANNABINOID, URINE NEGATIVE (NEG <=50); COCAINE, URINE NEGATIVE (NEG <=150); METHAMPHETAMINES SCREEN,URINE POSITIVE (NEG <=500); OPIATE, URINE NEGATIVE (NEG <=100); PHENCYCLIDINE SCREEN,URINE NEGATIVE (NEG <=25); UR TRICYCLIC ANTIDEPRESSANTS NEGATIVE (NEG <=300); URINE AMPHETAMINE POSITIVE (NEG <=500); URINE METHADONE NEGATIVE (NEG <=200); URINE OXYCODONE SCREEN NEGATIVE (NEG <=100); URINE PROPOXYPHENE SCREEN NEGATIVE (NEG <=300)
[2022-04-30 10:10] LABS: BACTERIA,URINE RARE /HPF (None Seen); RBC,URINE 0-3 /HPF (0-3); WBC,URINE NONE SEEN /HPF (0-3)
[2022-04-30] MEDS: cefTRIAXone 1 GM IVPB PREMIX 50 ML IV SCH (10:19)
[2022-04-30] MEDS: IPRATROPIUM/ALBUTEROL SULFATE 3 ML AMPUL.NEB (DUONEB) INH SCH ×3 (11:00→23:52)
--- NOTE | 2022-04-30 11:06 | NUR ---
PT WITH EYES CLOSED, IN NAD. TOLERATING BIPAP VENT SETTINGS WELL. VSS. HOOD CATH DRAINING.
[2022-04-30] MEDS: methylPREDNISolone SOD SUCC/PF 62.5 MG/ML VIAL IVP SCH ×2 (12:22→18:50)
--- NOTE | 2022-04-30 12:23 | NUR ---
RT AT BEDSIDE, PT TOLERATING VENT SETTING WELL. WILL CONT TO MONITOR CLOSELY.
--- NOTE | 2022-04-30 13:41 | NUR ---
PT AWAKE, REQUESTING WATER ANND TO HAVE BIPAP REMOVED. FLUIDS OFFERED AND TOLERATED WELL. REORIENTED TO PLACE AND EVENT, VERBALIZED UNDERSTANDING. MOTHER CALLED REQUESTED AND UPDATED HER ON PTS STATUS.
[2022-04-30 14:16] VITALS: BP_SYST 154
--- NOTE | 2022-04-30 15:06 | NUR ---
PT WITH EYES CLOSED, IN NAD. TOLERATING BIPAP WELL, SAFTEY PRECUATIONS IN PLACE. VSS
--- NOTE | 2022-04-30 17:06 | NUR ---
PT'S MOM AT BEDSIDE, FEEDING HIM. PT STATES THAT HE DOES NOT WANT BIPAP ON ANYMORE. RT CALLED, DR BOJORQUEZ IFNFORMED. TOLERATING FEEDING WELL, DENIES ANY SOB. SKIN W/D/I. ON OXIMIZER 4L @97%
--- NOTE | 2022-04-30 18:27 | NUR ---
Admitted to TELE unit. Diagnosis STATUS ASTHMATICUS Inpatient (Yes or No) YES Observation (Yes or No) NO Orientation concerns or request close to nursing station (Yes or No) YES Covid Status NEGATIVE On vent or bipap BIPAP Isolation requirements NO Needs a sitter NO From Home (Yes or if No enter name of facility) HOME Requires Dialysis (Yes or No) NO Med Rec Completed (Yes of No) YES
--- NOTE | 2022-04-30 19:12 | NUR ---
REPORT GIVEN TO SOUTH SOLIS, UPDATED ON STATUS, LABS AND VITALS.
--- NOTE | 2022-04-30 19:30 | NUR ---
IRMA MENDOZA REPORT FROM IRMA MILLER. PT APPEARS ANXIOUS. A/O X4, CLEAR SPEECH, HOOD INTACT AND DRAINING CLEAR YELLOW URINE.. PT MOVING AROUND ON GUNEY. " CAN I HAVE SOMETHING FOR SLEEP?" CONTINUED MONITORING. SR - ST ON MONITOR, SAO2 @ 100% IN OXYMIZER VIA N/C AT FIO2@ 40%. HEPLOICK INTACT TO LEFT F/A 20G CATH. NO EDEMA OR REDNESS AT SITE.
[2022-04-30] MEDS ORDERED: ACETAMINOPHEN 500 MG TABLET PO PRN (20:45)
--- NOTE | 2022-04-30 22:50 | NUR ---
PT STABLE FOR ADMISSION TO ROOM 112A. TO ROOM VIA WILLY MENDOZA RN/ SILVIA CASTRO, VIA WILLY, ON MONITOR. MOM AT BEDSIDE. WILL TAKE PERSONAL BELONGINGS HOME. REPORT TO IRMA HONEYCUTT
[2022-04-30 22:56] VITALS: BP_SYST 141
--- NOTE | 2022-05-01 00:25 | NUR ---
REPORT GIVEN TO IRMA URBINA. I RECEIVED PT TO FLOOR AT 2245 FROM THE ED. HIS MOTHER AND ED RN ACCOMPANIED PT TO HIS ROOM. PT WAS DROWSY WITH NOTED 5L O2 OXIMIZER IN USE nc Addendum: 05/01/22 at 0051 by [employer] fiber glass worker NOTED PT APPEARED TO BE USING ACCESSORY MUSCLES TO BREATH AND WAS TACHYPNEIC- RT SUMMONED FOR RESPIRATORY TREATMENT. NOTED BREATHING IMPROVED AFTERWARDS. PT AWAKENED AND BECAME VERY AGITATED AND BELLIGERENT. NOTED PT USING CURSE WORDS LOUDLY TOWARD MOTHER DEMANDING WATER- PT IS NPO. PT TEACHING DONE ON REASON FOR NPO STATUS RELATED TO DIFFICULTY BREATHING.. PT'S MOTHER ATTEMPTED TO CALM HIM DOWN.
[2022-05-01] MEDS: FAMOTIDINE 20 MG TABLET PO SCH ×2 (01:00→08:17)
[2022-05-01] MEDS ORDERED: LORazepam 2 MG/ML VIAL ONE ×2 (01:17→05:31)
[2022-05-01] MEDS: methylPREDNISolone SOD SUCC/PF 62.5 MG/ML VIAL IVP SCH ×4 (01:18→17:14)
[2022-05-01] MEDS: LORazepam 2 MG/ML VIAL IVP PRN ×2 (01:21→05:33)
[2022-05-01] MEDS: IPRATROPIUM/ALBUTEROL SULFATE 3 ML AMPUL.NEB (DUONEB) INH SCH ×6 (03:58→23:00)
[2022-05-01 07:01] LABS: BASOPHILS % (AUTO) 0.2 % (0.0-2.0); HEMATOCRIT 40.2 % (36-54); HEMOGLOBIN 13.9 g/dL (14.0-18.0); LYMPHOCYTES # (AUTO) 0.8 K/uL (1.0-5.5); LYMPHOCYTES % (AUTO) 4.1 % (20.5-51.5); MEAN CORPUSCULAR HEMOGLOBIN 28 pg (27-31); MEAN CORPUSCULAR HGB CONC 35 % (32-36); MEAN CORPUSCULAR VOLUME 80 fL (79.0-98.0); MONOCYTES # (AUTO) 0.4 K/uL (0.0-1.0); MONOCYTES % (AUTO) 2.3 % (1.7-9.3); NEUTROPHILS # (AUTO) 17.7 K/uL (1.8-7.7); NEUTROPHILS % (AUTO) 93.4 % (40.0-70.0); PLATELET COUNT (AUTO) 226 K/uL (130-430); RED BLOOD CELL COUNT(AUTO) 5.01 MIL/uL (4.2-6.2); RED CELL DISTRIBUTION WIDTH 14.5 % (9.0-15.0); WHITE BLOOD COUNT (AUTO) 18.9 K/uL (4.8-10.8)
[2022-05-01] MEDS: BUDESONIDE 0.5 MG/2 ML AMPUL.NEB INH SCH ×2 (07:31→19:00)
[2022-05-01 07:53] LABS: ALBUMIN 3.8 g/dL (3.4-4.8); CALCIUM 9.5 mg/dL (8.4-11.0); CREATININE 1.11 mg/dL (0.55-1.30); POTASSIUM 3.7 mmol/L (3.5-5.1); TOTAL BILIRUBIN 0.7 mg/dL (0.0-1.0)
[2022-05-01 08:02] VITALS: BP_SYST 160
[2022-05-01] MEDS: cefTRIAXone 1 GM IVPB PREMIX 50 ML IV SCH (11:24)
--- NOTE | 2022-05-01 12:30 | NUR ---
SCOWMAN SARAI Roberts responded to a Social Work consult request for "pt. homeless, meth, amph, heroine abuse". JEWELRY REPAIRER attempted to meet with patient at bedside. Patient was asleep and difficult to arouse. SARAI made 3 attempts to call patient's name, but we did not wake up. SARAI will made another attempt at a later time JEWELRY REPAIRER will continue to be available as needed Addendum: 05/01/22 at 1532 by Alejandra MOON SARAI Roberts made another attempt to engage patient. Patient's name was called 3x, but did not wake up.
[2022-05-01 16:17] VITALS: BP_SYST 141
[2022-05-01 20:00] VITALS: BP_SYST 134; BP_SYST 139
[2022-05-01] MEDS ORDERED: TEMAZEPAM 15 MG CAPSULE PO PRN (21:45)
[2022-05-02] MEDS: methylPREDNISolone SOD SUCC/PF 62.5 MG/ML VIAL IVP SCH ×2 (00:31→06:11)
[2022-05-02] MEDS: FAMOTIDINE 20 MG TABLET PO SCH ×2 (00:32→10:14)
[2022-05-02] MEDS: IPRATROPIUM/ALBUTEROL SULFATE 3 ML AMPUL.NEB (DUONEB) INH SCH ×3 (03:15→11:00)
[2022-05-02 07:00] VITALS: BP_SYST 130
[2022-05-02] MEDS: BUDESONIDE 0.5 MG/2 ML AMPUL.NEB INH SCH (07:00)
--- NOTE | 2022-05-02 12:40 | NUR ---
LEGAL SERVICE SPECIALIST SARAI Roberts responded to a consult request for social service support to address homelessness and substance abuse. INTER COM INSTALLER Alejandra met with patient at bedside. Patient was awake, alert and orientedx4. Patient's mother Yoselyn Leon was at bedside. INTER COM INSTALLER completed introductions, reason for referral, provided business card, patient was open to contact and provided consent to speak with mother at bedside. Substance abuse- When INTER COM INSTALLER attempted to discuss positive amphetamine and methamphetamine, patient stated "I want to leave, who do I talk to so I can leave". Social- Patient receives support from mother but did not want to discuss social support further Housing- Patient shared he currently resides in a tent by the [facility] in [place], he would not elaborate further and again stated "I want to leave". During this time, patient's mother disclosed she is at risk of being homeless at this time and unable to offer housing to patient. INTER COM INSTALLER offered patient resource to address substance abuse and housing but patient declined and expressed a desire to leave several times. INTER COM INSTALLER made several attempts to encourage patient to stay to address his current condition, but patient continued to say he wanted to leave AMA. Patient's mother requested resources and was provided the following; - Homeless Resource Packet - Directory of Homeless Providers - [employer] and [facility] - [facility] Instagram pages for low income housing, employment and unhoused resources INTER COM INSTALLER informed patient's RN that he was expressing a desire to leave AMA. INTER COM INSTALLER will continue to be available as needed
== END 2022-05-02 13:15 | disposition left against medical advice (07) | DRG 141 ==
LOC: SED 06:03 → SIC 08:35 → STU 22:15
PROVIDERS: ADMIT Internal Medicine; ATTEND Internal Medicine
PROC: 5A09357 Assistance with Respiratory Ventilation, Less than 24 Consecutive Hours, Continuous Positive Airway Pressure (ICD-10-PCS; principal; 2022-04-30)
PROC: 5A0935A Assistance with Respiratory Ventilation, Less than 24 Consecutive Hours, High Flow/Velocity Cannula (ICD-10-PCS; 2022-04-30)
PROC: 5A0935A Assistance with Respiratory Ventilation, Less than 24 Consecutive Hours, High Flow/Velocity Cannula (ICD-10-PCS; 2022-05-01)
DX: J45.901 Unspecified asthma with (acute) exacerbation (principal); J96.00 Acute respiratory failure, unspecified whether with hypoxia or hypercapnia; E44.1 Mild protein-calorie malnutrition; E87.2 Acidosis; Z20.822 Contact with and (suspected) exposure to COVID-19; F11.90 Opioid use, unspecified, uncomplicated; D72.829 Elevated white blood cell count, unspecified; Z59.00 Homelessness unspecified
CPT/HCPCS: 36415; 36600; 71045; 80053; 80307; 81000; 82803-TC; 85025; 93005; 94640; 94660; 94760; 96365; 96366; 96372; 96375; 99291; G0378; J0171; J0330; J0696; J1956; J2060; J2930; J3475; J7613; J7626

== ENCOUNTER 2022-06-19 21:05 | Inpatient (IN) | payer MEDICAID ==
[~2022-06-19] VITALS: Ht 175.3 cm; Wt 64.0 kg
[~2022-06-19 21:05] MED LIST changes: +ETOMIDATE 20 MG/ 10 ML VIAL (AMIDATE) ONE; +SUCCINYLCHOLINE CHLORIDE 20 MG/ML(QUELICIN) ONE
--- NOTE | 2022-06-19 21:12 | NUR ---
Placed in room [address] abstractor, blood pressure machine and pulse oximeter. To gown for exam. Side rails up. Report given to Kaci SOLIS(reg).
--- NOTE | 2022-06-19 21:13 | NUR ---
ER at bedside examining patient.
[2022-06-19 21:14] VITALS: BP_SYST 184
[2022-06-19] MEDS ORDERED: METHYLPREDNISOLONE SOD SUCC 40 MG/ML VIAL IVP ONE (21:30)
[2022-06-19] MEDS ORDERED: NACL 0.9% 1,000 ML IV ONE ×2 (21:30→22:15)
[2022-06-19] MEDS ORDERED: ALBUTEROL SULFATE 0.083% 2.5 MG/3 ML VIAL.NEB INH ONE (21:30)
[2022-06-19] MEDS ORDERED: EPINEPHrine HCL 1 MG/ML VIAL IM ONE ×2 (21:30→22:00)
[2022-06-19] MEDS ORDERED: IPRATROPIUM BROM 0.5 MG/2.5 ML VIAL.NEB (ATROVENT) INH ONE (21:30)
[2022-06-19] MEDS ORDERED: MAGNESIUM SULFATE 50 ML IV ONE (21:30)
[2022-06-19] MEDS ORDERED: LORazepam 2 MG/ML VIAL IVP ONE (21:45)
[2022-06-19] MEDS ORDERED: EPINEPHRINE HCL/PF 1 MG/ML AMP ONE (21:50)
--- NOTE | 2022-06-19 21:57 | NUR ---
Patient not known to be of DNR status. Patient medicated with 20 mg of ETOMIDATE AND 100 MG OF SUCS IVP for sedation prior to placement of ET tube. Respiratory therapy at bedside prior to placement. Size 8 ET tube placed by DR. HARTMAN. Cuff inflated with 10 cc air. Auscultation of breath sounds over bilateral chest wall. ET tube secured with HOLSTER. O2 sats 100% pulse ox. PCXR ordered to check tube placement.
[2022-06-19] MEDS ORDERED: PROPOFOL DRIP 100 ML IV ONE ×2 (22:03→22:15)
[2022-06-19] MEDS ORDERED: IPRATROPIUM/ALBUTEROL SULFATE 3 ML AMPUL.NEB (DUONEB) ONE (22:12)
[2022-06-19 22:18] LABS: BASOPHILS # (AUTO) 0.1 K/uL (0.0-0.2); BASOPHILS % (AUTO) 0.5 % (0.0-2.0); EOSINOPHILS # (AUTO) 1.3 K/uL (0.0-0.4); EOSINOPHILS % (AUTO) 14.3 % (0.0-4.0); HEMATOCRIT 40.3 % (36-54); HEMOGLOBIN 13.7 g/dL (14.0-18.0); LYMPHOCYTES # (AUTO) 2.3 K/uL (1.0-5.5); MEAN CORPUSCULAR HEMOGLOBIN 28 pg (27-31); MEAN CORPUSCULAR HGB CONC 34 % (32-36); MEAN CORPUSCULAR VOLUME 82 fL (79.0-98.0); MONOCYTES % (AUTO) 10.5 % (1.7-9.3); NEUTROPHILS # (AUTO) 4.7 K/uL (1.8-7.7); NEUTROPHILS % (AUTO) 49.7 % (40.0-70.0); PLATELET COUNT (AUTO) 220 K/uL (130-430); RED BLOOD CELL COUNT(AUTO) 4.94 MIL/uL (4.2-6.2); RED CELL DISTRIBUTION WIDTH 15.8 % (9.0-15.0); WHITE BLOOD COUNT (AUTO) 9.4 K/uL (4.8-10.8)
--- NOTE | 2022-06-19 22:21 | NUR ---
COVID AND MRSA SWABS SENT TO LAB.
[2022-06-19] MEDS ORDERED: SUCCINYLCHOLINE CHLORIDE 20 MG/ML(QUELICIN) IVP ONE (22:30)
[2022-06-19] MEDS ORDERED: ETOMIDATE 20 MG/ 10 ML VIAL (AMIDATE) IVP ONE (22:30)
[2022-06-19 22:32] LABS: ANION GAP 5 (5-15); CALCIUM 9.3 mg/dL (8.4-11.0); CHLORIDE 103 mmol/L (98-107); CREATININE 1.13 mg/dL (0.55-1.30); GLUCOSE 120 mg/dL (70-99); UREA NITROGEN, BLOOD 11 mg/dL (8-21)
[2022-06-19 22:33] LABS: GFR AFRICAN AMERICAN 97 mL/min (>90)
[2022-06-19 22:38] LABS: ALANINE AMINOTRANSFERASE 20 U/L (12-78); ASPARTATE AMINOTRANSFERASE 27 U/L (10-37); TOTAL BILIRUBIN 0.1 mg/dL (0.0-1.0)
[2022-06-19 22:44] LABS: ALCOHOL, BLOOD < 3 mg/dL (<10)
[2022-06-19] MEDS ORDERED: MIDAZOLAM HCL 5 MG/5 ML VIAL IVP ONE (22:45)
[2022-06-19] MEDS ORDERED: VECURONIUM BROMIDE 10 MG/VIAL (NORCURON) IVP ONE (22:45)
--- NOTE | 2022-06-19 22:59 | NUR ---
LATE ENTRY: 2114: ASSUME CARE OF THIS PATIENT AAOX4, SPEAKING IN 1-2 WORD HERE FOR ASTHMA ATTACK BIB BLS. PER MEDIC REPORT PT RECEIVED EPI IM ON FIELD. PT ARRIVED ON NRBM 15L. PT DENIES CP, HE STATED THAT HE IS VERY NEORVOUS. 2117: IVL EST TO RT ARM 20G, BLOOD DRAWN, MADE HIM AWARE THAT HE WILL BE MEDICATED WITH STAEROIDS AND OTHER IVF. 2119: RT JACK AT BEDSIDE AT THIS TIME, INFORMING PATIENT ON PATIENT ORDERS FOR BREATHING TX. 2129: BREATHING TX ON PROGRESS, PT REFUSING BREATHING TX AT THIS TIME. NOTED SWEATING AND RESTLESSNESS. PULLING OUT MASK WITH ALBUTEROL TX. 2139: PT MEDICATED PER EMAR. STILL RESTLESS, INFORMED DR. MINNIE MD WENT AT [facility] AND ORDERED FOR ATIVAN RECEIVED. 2149: PT HR WENT TO WE, SATURATING 84% AT THIS TIME. INFORMED DR. HARTMAN. ORDER FOR NTUBATION RECEIVED. 2150: RT AT BEDSIDE AND OTHER ACLS RN TO PREPARE FOR INTUBATION. 2153: ETOMIDATE 20 MG GIVEN IVP UNDER THE SUPERVISION OF DR. HARTMAN 2154:SUCS 100 MG GIVEN IVP UNDER THE SUPERVISION OF DR. HARTMAN, PT WAS BAGGED, VSS. 2156: PT INTUBATED (SEE NOTE) 2158: OGT INSERTED PLACEMENT VERIFIED WITH JUSTIN SOLIS, OHT ATTACHED TO INTERMITTENT SUCTION, NOTED GASTRIC CONTENT. 2202: HOOD CATH INSERTED 16FR, NOTED YELLOW CLEAR URINE, APPROX 20CC. 0:IVL EST TO LT AC, 20G. 5: PROPOFOL DRIP STARTED PER TITRATION PROTOCAL.
[2022-06-20] VITALS (28 sets, daily range): BP systolic 80–147
--- NOTE | 2022-06-20 | NUR ---
medicated drips maintained.fall risl precaution maintained.
[2022-06-20] MEDS ORDERED: PROPOFOL DRIP 100 ML IV ONE ×2 (00:34→03:09)
--- NOTE | 2022-06-20 00:37 | NUR ---
URINE SENT TO LAB.
[2022-06-20] MEDS ORDERED: MIDAZOLAM IN NACL,ISO-OSMOT/PF 100 ML IV ONE ×2 (00:38→03:10)
[2022-06-20] MEDS: MIDAZOLAM IN NACL,ISO-OSMOT/PF 100 ML IV PRN ×3 (01:00→23:55)
[2022-06-20 01:04] LABS: METHAMPHETAMINES SCREEN,URINE POSITIVE (NEG <=500)
[2022-06-20 01:05] LABS: BARBITURATE, URINE NEGATIVE (NEG <=200); BENZODIAZEPINE, URINE NEGATIVE (NEG <=150); CANNABINOID, URINE NEGATIVE (NEG <=50); COCAINE, URINE NEGATIVE (NEG <=150); OPIATE, URINE NEGATIVE (NEG <=100); PHENCYCLIDINE SCREEN,URINE NEGATIVE (NEG <=25); UR TRICYCLIC ANTIDEPRESSANTS NEGATIVE (NEG <=300); URINE AMPHETAMINE POSITIVE (NEG <=500); URINE METHADONE NEGATIVE (NEG <=200); URINE OXYCODONE SCREEN NEGATIVE (NEG <=100); URINE PROPOXYPHENE SCREEN NEGATIVE (NEG <=300)
[2022-06-20] MEDS: PROPOFOL DRIP 100 ML IV PRN ×3 (01:33→11:01)
[2022-06-20] MEDS ORDERED: ALBUTEROL SULFATE 0.083% 2.5 MG/3 ML VIAL.NEB INH ONE ×4 (01:45→15:15)
[2022-06-20] MEDS ORDERED: TERBUTALINE SULFATE 1 MG/ML VIAL SUBCUT ONE (01:45)
[2022-06-20] MEDS ORDERED: IPRATROPIUM BROM 0.5 MG/2.5 ML VIAL.NEB (ATROVENT) INH ONE (01:45)
--- NOTE | 2022-06-20 02:12 | NUR ---
Admit bed requested Patient will be admitted to care of Mo Clifford Admitted to ICU unit. Diagnosis RESPIRATORY FAILURE Inpatient (Yes or No) YES Observation (Yes or No) NO Orientation concerns or request close to nursing station (Yes or No) YES Covid Status NEGATIVE On vent or bipap NO Isolation requirements NO Needs a sitter NO From Home (Yes or if No enter name of facility) HOMELESS Requires Dialysis (Yes or No) NO Med Rec Completed (Yes of No) PENDING
--- NOTE | 2022-06-20 02:14 | NUR ---
CALLED AND SPOKE WITH PATIENT MOTHER AND INFORMED HIM THAT PT HERE IN PLUSH.
[2022-06-20] MEDS: D5NS 1,000 ML IV SCH ×2 (02:15→15:04)
--- NOTE | 2022-06-20 02:55 | NUR ---
TRANSFER PT VIA DAGMAR AGUILERA REPORT GIVEN TO EMERY SOLIS
--- NOTE | 2022-06-20 03:34 | NUR ---
PT WAS TRANSFERED FROM THE ER AT 0300. TO IS CURRENTLY INTUBATED, AND ON RESTRAINTS. PT IS SEDATED WITH PROPFOL @60 AND VERSED @10. PT VS ARE FOLLOWED BP-102/43, HR-100, RESP-26, AND SPO2-95%. PT IS CURRENTLY STABLE AND CALM.
--- NOTE | 2022-06-20 04:36 | NUR ---
CONSULTATION PAGED/CALLED Reason for Consultation: RESPIRATORY FAILURE Person Who was Notified: CHAS Consulting Physician: DR. STARR Life Insurance Specialist Specialty: PULMONOLOGY Ordering Physician: DR. LEWIS
--- NOTE | 2022-06-20 07:20 | NUR ---
Received report from mine shifter RN, and assumed patient care. Patient was seen thrasing around despite maxed out sedation gtt, restraints are reinforced on patient, lines are noted to be kept away, no new orders noted at the moment. Will reinforce if needed throughout the shift.
[2022-06-20 07:30] LABS: BASOPHILS % (AUTO) 0.1 % (0.0-2.0); EOSINOPHILS % (AUTO) 0.2 % (0.0-4.0); HEMATOCRIT 36.1 % (36-54); HEMOGLOBIN 12.7 g/dL (14.0-18.0); LYMPHOCYTES # (AUTO) 0.3 K/uL (1.0-5.5); MEAN CORPUSCULAR HEMOGLOBIN 29 pg (27-31); MEAN CORPUSCULAR HGB CONC 35 % (32-36); MEAN CORPUSCULAR VOLUME 81 fL (79.0-98.0); MONOCYTES # (AUTO) 0.1 K/uL (0.0-1.0); NEUTROPHILS # (AUTO) 10.3 K/uL (1.8-7.7); NEUTROPHILS % (AUTO) 95.7 % (40.0-70.0); PLATELET COUNT (AUTO) 188 K/uL (130-430); RED BLOOD CELL COUNT(AUTO) 4.45 MIL/uL (4.2-6.2); RED CELL DISTRIBUTION WIDTH 15.7 % (9.0-15.0); WHITE BLOOD COUNT (AUTO) 10.8 K/uL (4.8-10.8)
--- NOTE | 2022-06-20 07:30 | NUR ---
Spoke to Dr. Spencer on the phone, informed MD about patient's situation with patient's increase of agitation, tachypneic in the 30s, and asynchronous with the ventilator despite maxed out on current sedation gtt. MD ordered ABG, chest xray, and additional medications to help with synchrony with the ventilator, no additional orders noted at the moment and will reinforce if needed throughout the shift.
[2022-06-20] MEDS ORDERED: DOCUSATE SODIUM 100 MG CAPSULE PO PRN (07:45)
[2022-06-20] MEDS ORDERED: MUPIROCIN 2% TOPICAL OINTMENT 22 GM NS PRN (07:45)
[2022-06-20] MEDS ORDERED: ZOLPIDEM TARTRATE 5 MG TABLET PO PRN (07:45)
[2022-06-20] MEDS ORDERED: ACETAMINOPHEN 325 MG TABLET PO PRN ×2 (07:45→08:15)
[2022-06-20] MEDS ORDERED: NALOXONE HCL 0.4 MG/ML AMP (NARCAN) IVP PRN ×2 (07:45)
[2022-06-20] MEDS ORDERED: MAGNESIUM SULFATE 50 ML IV PRN (07:45)
[2022-06-20] MEDS ORDERED: MORPHINE 2 MG/ML INJ. SYRINGE IVP PRN ×2 (07:45)
[2022-06-20] MEDS: MORPHINE SULFATE IN 0.9 % NACL 100 ML IV PRN ×3 (07:46→18:33)
[2022-06-20 08:00] LABS: ALBUMIN 3.4 g/dL (3.4-4.8); CREATININE 1.1 mg/dL (0.55-1.30); TOTAL BILIRUBIN 0.4 mg/dL (0.0-1.0)
--- NOTE | 2022-06-20 08:00 | NUR ---
Dr. Harvey rounded at bedside, provided nursing updates and had no further orders noted at the moment. MD is OK with placing restraint orders due to patient moving in bed and might possibly pull on medical lines, no additional orders noted at the moment and will reinforce if needed throughout the shift.
--- NOTE | 2022-06-20 09:30 | NUR ---
Spoke to Dr. Spencer on the phone, MD is aware of most current ABG levels, MD is OK with current vent settings MD is aware of patient wheezing upon auscultation, no new orders noted at the moment. MD ordered to continue to titrate medications to keep patient synchronized with the ventilator, OK with placing levo gtt if needed for MAP goal. No additional orders noted at the moment, will reinforce if needed throughout the shift.
--- NOTE | 2022-06-20 10:10 | NUR ---
SWEAT BAND SEPARATOR ACSW Alejandra responded to a generated Social Service referral. ACSW met with patient's mother Yoselyn at bedside. ACSW completed introductions and provided business card, Yoselyn expressed remembering this ACSW from patient's previous inpatient stay and was open to contact. Homeless- Patient's mother confirmed patient is unhoused and continues to reside in an encampment behind [facility]. Address depicted on facesheet is sister's address and is used for mailing. Health- Patient's mother shares patient did not follow-up with PCP to address medical needs. Substance use- Patient tested positive for meth. Yoselyn benoit patient has expressed wanting to "get clean" Social- Patient's mother shared she has a daughter but both patient and her are unable to reside in her because "it's to small and she has a son". Legal- Yoselyn benoit patient is continuing to participate in court mandated domestic violence classes. According to Yoselyn, this has impacted his ability to be accepted into a substance abuse treatment program. ACSW provided social work support to patient's mother and acknowledged and reflected on her expression of concern for patient's condition. ACSW and patient's mother discussed need for letter depicting his current inpatient status and condition in the event it is needed for court. ACSW and patient's mother also discussed exploring previous resources to address need for stable housing. ACSW will continue to be available as needed
--- NOTE | 2022-06-20 10:10 | NUR ---
Patient's mother (Yoselyn Leon) at bedside, provided nursing updates and had no further questions. Yoselyn is still currently unsure about placing PICC line on patient, answered all questions but still unsure about giving consent as of the moment. Will reinforce if needed throughout the shift.
[2022-06-20 10:25] LABS: PROTHROMBIN TIME 10.3 SECS (9.5-12.5)
--- NOTE | 2022-06-20 11:13 | NUR ---
Informed cash shortage investigator (Steff) about patient's missed reassessment and non-administered medication on the patient's EMAR (please see emar for further details) and reorganized patient's emar for a clearer view of medications that are due. No other complications noted at the moment, will reinforce if needed throughout the shift.
--- NOTE | 2022-06-20 11:40 | NUR ---
Patient's mother (Yoselyn) at bedside and is still unsure of signing consent for PICC line placement, explained the benefits of the procedure however still unsure of placing a PICC line. No other questions noted at the moment, will reinforce if needed throughout the shift.
--- NOTE | 2022-06-20 12:44 | NUR ---
Performed CHG bath on patient, patient tolerated the turns and showed NO complications during the process. Will reinforce if needed throughout the shift. Changed linens, will reinforce if needed.
--- NOTE | 2022-06-20 13:05 | NUR ---
Called Dr. Spencer, informed MD about patient's maxed out on sedation gtt (propofol gtt at 50mcg/kg/min, versed 10mg/hr, & morphine 20mg/hr) and patient still a-synchronous with the ventilator. Dr. Spencer wants to proceed with adding another medication, vecuronium gtt. Performed baseline of TOF, will wait for pharmacy to verify medication, no additional medication noted at the moment, will reinforce if needed throughout the shift.
[2022-06-20] MEDS ORDERED: VECURONIUM BROMIDE 50 MG in NS 50 ML IV PRN (13:15)
[2022-06-20] MEDS: NOREPINEPHRINE BITARTRATE 4 MG in NS 246 ML IV PRN ×3 (13:21→22:29)
--- NOTE | 2022-06-20 14:00 | NUR ---
Dr. Spencer rounded at bedside, MD is aware of patient's maxed on sedation gtt (propofol 50mcg/kg/min, versed 10mg/hr, morphine 20mg/hr) and patient still is asynchronous with the ventilator. MD said OK to start vecuronium gtt, vecuronium gtt started (please see emar for further details). Patient's mother is at bedside, MD provided medical updates and explained PICC line benefits and family agreed to give consent (will inform assistant facility manager about patient's family agreement for consent). No additional order noted at the moment, will reinforce if needed throughout the shift.
[2022-06-20] MEDS ORDERED: ALBUTEROL SULFATE 0.083% 2.5 MG/3 ML VIAL.NEB INH PRN (14:15)
--- NOTE | 2022-06-20 14:15 | NUR ---
RT NOTES Oral sxn performed before cuff deflation for ETT advancement. ETT secured at 27cm, bilateral b/s/chest rise noted, no resistance when sxn via ETT.
--- NOTE | 2022-06-20 14:26 | NUR ---
Primary RN and floor grinder (Steff) at bedside, patient's HR started to go down to 35s, SBP is within range of 160-170s, sedation gtt & paralytic gtt placed on hold, crash cart at bedside, placed defib. pads on patient, and board under patient, RT at bedside. 1430: Atropine 1mg was given with HR of 37. 1435: HR [address] Spencer was made aware of the situation and ordered to discontinue vecuronium gtt, and change the max dose on current sedation gtt (please see emar for further details). Informed patient's mother at bedside of the situation that occurred. No additional orders noted at the moment, will reinforce if needed throughout the shift.
[2022-06-20] MEDS ORDERED: MAGNESIUM SULFATE 1 GM/2 ML VIAL IVP ONE (14:30)
[2022-06-20] MEDS ORDERED: COMMUNICATION ORDER XX ONE (14:45)
[2022-06-20] MEDS ORDERED: MAGNESIUM SULFATE 50 ML IV ONE (15:00)
[2022-06-20] MEDS: AZITHROMYCIN 500 MG in NS 250 ML IV SCH (15:09)
[2022-06-20] MEDS: ALBUTEROL SULFATE 0.083% 2.5 MG/3 ML VIAL.NEB INH SCH ×3 (15:28→23:26)
--- NOTE | 2022-06-20 16:52 | NUR ---
Received critical ABG levels, will call Dr. Spencer for further details.
--- NOTE | 2022-06-20 17:01 | NUR ---
Dr. Spencer called back, is aware of most recent critical ABG levels, no new orders noted at the moment, and per MD is OK with the recent ventilator settings. Will reinforce if needed throughout the shift.
[2022-06-20] MEDS: methylPREDNISolone SOD SUCC/PF 62.5 MG/ML VIAL IVP SCH (17:04)
--- NOTE | 2022-06-20 17:57 | NUR ---
Patient had a moment of bradycardia in the 45s, MAP is within patient's goal of >65. milk receiver (Steff) was called to bedside, and propofol gtt was titrated down to 30mcg/kg/min due to bradycardia. After a few sternal rubs, HR slowly increased up from 45s to 60s+. Atropine IVP is at bedside, patient did not require medication as of yet and will be on standby if patient's HR starts to drop down. Dr. Spencer was made aware of the situation and ordered to consult cardiology for further instructions, no new orders noted at the moment.
--- NOTE | 2022-06-20 18:00 | NUR ---
RT NOTES Per RN, no new orders from Dr Spencer.
--- NOTE | 2022-06-20 18:04 | NUR ---
CONSULTATION PAGED/CALLED Reason for Consultation: BRADYCARDIA Person Who was Notified: EXCHANGE Consulting Physician: JAZZY [employer] Supervisor Specialty: CARDIOLOGY Ordering Physician: MATTY
--- NOTE | 2022-06-20 18:54 | NUR ---
Dr. Gonzalez called for consult, MD is aware of patient's bradycardia moment towards 35s, MD is aware of current situation and sedation gtt. MD ordered dobutamine gtt only if HR is less than 40. No additional order noted at the moment, will reinforce if needed throughout the shift.
--- NOTE | 2022-06-20 19:00 | NUR ---
received pt from outgoing nurse,asleep.he is intubated/vented and on sedation with propofol@60 versed @12 morphine@20mg/hr. DNS @80 ML/H awaits a PICC NURSE.family by bedside see flow chat for VS and assessment
[2022-06-20] MEDS: PROPOFOL DRIP 1000 MG/ 100 ML BTL IV PRN (22:43)
[2022-06-21] VITALS (34 sets, daily range): BP systolic 114–170
--- NOTE | 2022-06-21 | NUR ---
pt needs frequent suction .skin care given
[2022-06-21] MEDS: MORPHINE SULFATE IN 0.9 % NACL 100 ML IV PRN ×5 (00:08→22:33)
[2022-06-21] MEDS: methylPREDNISolone SOD SUCC/PF 62.5 MG/ML VIAL IVP SCH ×5 (00:09→23:50)
--- NOTE | 2022-06-21 02:00 | NUR ---
pts drip titrated as needed .versed @7 .propofol @60 morphine @20 DNS @80 ml/hr positioned to left side.
[2022-06-21] MEDS: D5NS 1,000 ML IV SCH ×2 (03:15→16:04)
[2022-06-21] MEDS: ALBUTEROL SULFATE 0.083% 2.5 MG/3 ML VIAL.NEB INH SCH ×5 (04:11→23:25)
--- NOTE | 2022-06-21 06:00 | NUR ---
oral care /skin care rendered .vitals updated
[2022-06-21 07:04] LABS: CALCIUM 8.8 mg/dL (8.4-11.0); CREATININE 1.22 mg/dL (0.55-1.30); POTASSIUM 4.8 mmol/L (3.5-5.1)
[2022-06-21] MEDS: PROPOFOL DRIP 1000 MG/ 100 ML BTL IV PRN ×3 (07:17→19:43)
--- NOTE | 2022-06-21 07:20 | NUR ---
Received report from fast food shift supervisor RN, and assumed patient care.
--- NOTE | 2022-06-21 07:30 | NUR ---
Dr. Gonzalez rounded at bedside, provided nursing updates, MD is aware of patient's bradycardic moments to the lowest of 45s. MD is aware of most current sedation gtt, and levophed gtt settings, no additional orders noted at the moment. 0735: Patient's HR started trending down towards 40-45s, MD is aware of the situation and is OK with administering 0.5mg Atropine IVP. rough and trueing machine operator (Patricia) is aware of the situation and will reinforce if needed throughout the shift.
--- NOTE | 2022-06-21 08:00 | NUR ---
Dr. Harvey rounded at bedside, provided nursing updates, no additional orders noted at the moment. Dr. Spencer rounded at bedside, MD is aware of the bradycardia moment x1 in AM shift for today, MD ordered ABG and medications (will wait for [facility] to verify orders). MD states he will not make changes on the sedation gtt at the moment, and keep patient sedated until further notice, will reinforce if needed throughout the shift.
[2022-06-21 08:12] LABS: BASOPHILS % (AUTO) 0.1 % (0.0-2.0); HEMATOCRIT 34.9 % (36-54); HEMOGLOBIN 11.9 g/dL (14.0-18.0); LYMPHOCYTES # (AUTO) 0.3 K/uL (1.0-5.5); LYMPHOCYTES % (AUTO) 2.1 % (20.5-51.5); MEAN CORPUSCULAR HEMOGLOBIN 28 pg (27-31); MEAN CORPUSCULAR HGB CONC 34 % (32-36); MEAN CORPUSCULAR VOLUME 81 fL (79.0-98.0); MONOCYTES # (AUTO) 0.6 K/uL (0.0-1.0); MONOCYTES % (AUTO) 3.9 % (1.7-9.3); NEUTROPHILS # (AUTO) 14.8 K/uL (1.8-7.7); NEUTROPHILS % (AUTO) 93.9 % (40.0-70.0); PLATELET COUNT (AUTO) 224 K/uL (130-430); WHITE BLOOD COUNT (AUTO) 15.7 K/uL (4.8-10.8)
[2022-06-21] MEDS ORDERED: ATROPINE SULFATE 1 MG/10 ML SYRINGE IVP PRN (08:15)
[2022-06-21] MEDS ORDERED: ATROPINE SULFATE 1 MG/10 ML SYRINGE IVP ONE (08:30)
[2022-06-21] MEDS: ENOXAPARIN SODIUM 40 MG/0.4 ML SYRINGE SUBCUT SCH (08:52)
[2022-06-21] MEDS: PANTOPRAZOLE SODIUM 40 MG/VIAL (PROTONIX) IVP SCH (08:52)
[2022-06-21] MEDS: NOREPINEPHRINE BITARTRATE 4 MG in NS 246 ML IV PRN (10:27)
[2022-06-21] MEDS: MIDAZOLAM IN NACL,ISO-OSMOT/PF 100 ML IV PRN (11:03)
--- NOTE | 2022-06-21 12:00 | NUR ---
Patient's family member at bedside (Ysoelyn), provided nursing updates, had no further questions noted at the moment. Will reinforce if needed throughout the shift.
--- NOTE | 2022-06-21 13:00 | NUR ---
Followed up with upstream biomanufacturing technician about patient's formula, no answer noted at the moment, and will reinforce if needed throughout the shift. Patient still in LWS, will follow up again.
--- NOTE | 2022-06-21 14:00 | NUR ---
Performed CHG bath on patient, patient tolerated the bath, and the turns, changed the linens, will reinforce if needed throughout the shift.
[2022-06-21] MEDS: AZITHROMYCIN 500 MG in NS 250 ML IV SCH (17:12)
--- NOTE | 2022-06-21 19:00 | NUR ---
Opening notes Received report from endorsing morning shift RN for continuity of care. Patient is lying in bed with family member at the bedside with IVF D5 1/2 NS @ 80 mL/hr, levophed @ 0.02 mcg/kg/min, morphine @ 20 mg/hr, versed @ 6 mg/hr, propofol @ 30 mcg/kg/min. Patient's vital signs blood pressure 124/59, heart rate 59, respirations 18, and SPO2 95% on ventilator. Ventilator settings PC 18, FIO2 35%, and peep of 5. Dillon catheter is in place draining to gravity. Bed is locked and in lowest position, fall and safety precautions is in place.
[2022-06-22] VITALS (34 sets, daily range): BP systolic 14–168
[2022-06-22] MEDS: ALBUTEROL SULFATE 0.083% 2.5 MG/3 ML VIAL.NEB INH SCH ×4 (04:23→15:21)
[2022-06-22] MEDS: D5NS 1,000 ML IV SCH ×2 (04:25→17:10)
[2022-06-22] MEDS: MORPHINE SULFATE IN 0.9 % NACL 100 ML IV PRN ×3 (04:26→20:45)
[2022-06-22] MEDS: PROPOFOL DRIP 1000 MG/ 100 ML BTL IV PRN ×2 (04:29→08:02)
[2022-06-22] MEDS: methylPREDNISolone SOD SUCC/PF 62.5 MG/ML VIAL IVP SCH ×4 (05:25→23:21)
[2022-06-22] MEDS: MIDAZOLAM IN NACL,ISO-OSMOT/PF 100 ML IV PRN ×3 (05:27→20:44)
[2022-06-22 06:33] LABS: BASOPHILS % (AUTO) 0.1 % (0.0-2.0); HEMATOCRIT 35.5 % (36-54); HEMOGLOBIN 11.9 g/dL (14.0-18.0); LYMPHOCYTES # (AUTO) 0.3 K/uL (1.0-5.5); LYMPHOCYTES % (AUTO) 1.9 % (20.5-51.5); MEAN CORPUSCULAR HEMOGLOBIN 28 pg (27-31); MEAN CORPUSCULAR HGB CONC 34 % (32-36); MEAN CORPUSCULAR VOLUME 83 fL (79.0-98.0); MONOCYTES # (AUTO) 0.8 K/uL (0.0-1.0); MONOCYTES % (AUTO) 4.7 % (1.7-9.3); NEUTROPHILS # (AUTO) 15.5 K/uL (1.8-7.7); NEUTROPHILS % (AUTO) 93.3 % (40.0-70.0); PLATELET COUNT (AUTO) 182 K/uL (130-430); RED BLOOD CELL COUNT(AUTO) 4.29 MIL/uL (4.2-6.2); RED CELL DISTRIBUTION WIDTH 16.3 % (9.0-15.0); WHITE BLOOD COUNT (AUTO) 16.7 K/uL (4.8-10.8)
[2022-06-22 06:51] LABS: CALCIUM 8.5 mg/dL (8.4-11.0); CREATININE 0.79 mg/dL (0.55-1.30); POTASSIUM 4.2 mmol/L (3.5-5.1)
--- NOTE | 2022-06-22 07:15 | NUR ---
Received report from IRMA Narayan and assumed patient care.
--- NOTE | 2022-06-22 07:25 | NUR ---
Turned patient's head to be centered, then patient started wake up and started to become agitated in bed. Increased sedation gtt to meet goal, and to keep patient calm, restraints are in place, medical lines/tubing are away from patient's hands. Patient's vital signs are within patient's range, will reinforce if needed throughout the shift. Dr. Harvey is aware of the situation and will reinforce if needed throughout the shift, no new orders noted at the moment.
--- NOTE | 2022-06-22 07:40 | NUR ---
Dr. Gonzalez rounded at bedside, MD is aware of patient's situation that occurred last night with patient maintaining in the 30-35s for the heart rate, then was started on dobutamine gtt. No additional order noted at the moment, will reinforce if needed throughout the shift. MD is aware of pending tube feeds, and dieticians has not made a note for recommendations as of yet, will reinforce and call back again.
--- NOTE | 2022-06-22 07:55 | NUR ---
Dr. Spencer rounded at bedside, MD is aware of the current gtt and the bradycardia moment that occurred last night. MD is aware of patient's abrupt action of waking up due to low sedation rates due to bradycardia moment that occurred last night. MD ordered to keep patient sedated and titrate on pressor medications to keep cardiac goal within range. No changes made at the moment, and no new orders of ABG or chest xray noted at the moment, per MD keep patient sedated until further notice to start titrating down on sedation gtt. MD is aware of urine's color turning green due to propofol gtt, MD is OK with titrating down on propofol gtt and if needed to titrate up on the other sedation gtt. Will reinforce if needed throughout the shift.
--- NOTE | 2022-06-22 08:00 | NUR ---
Dr. Harvey rounded at bedside, no additional orders noted at the moment. Provided nursing updates, and had no further orders noted at the moment. Will reinforce if needed throughout the shift.
[2022-06-22] MEDS: ENOXAPARIN SODIUM 40 MG/0.4 ML SYRINGE SUBCUT SCH (08:01)
[2022-06-22] MEDS: PANTOPRAZOLE SODIUM 40 MG/VIAL (PROTONIX) IVP SCH (08:01)
[2022-06-22] MEDS ORDERED: THEOPHYLLINE ANHYDROUS 200 MG CAP.ER.24H PO ONE (09:15)
--- NOTE | 2022-06-22 11:00 | NUR ---
Performed CHG bath on patient, no complications noted during the turns and the linen change. Will reinforce if needed throughout the shift, will reinforce if needed throughout the shift.
--- NOTE | 2022-06-22 13:26 | NUR ---
Patient's family member at bedside (Yoselyn), provided nursing updates to family member and had no further questions noted at the moment. Will reinforce if needed throughout the shift.
[2022-06-22] MEDS ORDERED: THEOPHYLLINE ANHYDROUS 200 MG CAP.ER.24H PO SCH (14:00)
[2022-06-22] MEDS: THEOPHYLLINE ANHYDROUS 80 MG/15 ML UDC PO SCH ×2 (14:01→20:42)
--- NOTE | 2022-06-22 14:45 | NUR ---
Dietitian Recommendations * Jevity 1.5 at 50 ml/hr (goal rate), Free Water Flush: 300 ml Q6h via OGT Provides: 1945 kcal/day, 76 gm protein/day, and 1747 ml free water/day Meets: 103% of estimated caloric needs, 93% of upper end of estimated protein needs, and 92% of estimated fluid needs LP, MS, RD Please refer to Nutrition Assessment for details. Addendum: 06/22/22 at [address] Amended: Links added.
[2022-06-22] MEDS: AZITHROMYCIN 500 MG in NS 250 ML IV SCH (15:37)
[2022-06-23] VITALS (34 sets, daily range): BP systolic 12–157
[2022-06-23] MEDS: MORPHINE SULFATE IN 0.9 % NACL 100 ML IV PRN ×5 (01:08→21:28)
[2022-06-23] MEDS: PROPOFOL DRIP 1000 MG/ 100 ML BTL IV PRN ×4 (01:09→22:10)
[2022-06-23] MEDS: MIDAZOLAM IN NACL,ISO-OSMOT/PF 100 ML IV PRN ×4 (02:59→21:27)
[2022-06-23] MEDS: ALBUTEROL SULFATE 0.083% 2.5 MG/3 ML VIAL.NEB INH SCH ×7 (04:06→23:51)
[2022-06-23] MEDS: D5NS 1,000 ML IV SCH (04:34)
[2022-06-23] MEDS: methylPREDNISolone SOD SUCC/PF 62.5 MG/ML VIAL IVP SCH ×3 (05:31→17:20)
[2022-06-23] MEDS: THEOPHYLLINE ANHYDROUS 80 MG/15 ML UDC PO SCH ×3 (05:31→22:55)
--- NOTE | 2022-06-23 07:15 | NUR ---
Received report from IRMA Narayan and assumed patient care.
[2022-06-23 07:16] LABS: HEMATOCRIT 32.5 % (36-54); HEMOGLOBIN 11.1 g/dL (14.0-18.0); LYMPHOCYTES # (AUTO) 0.3 K/uL (1.0-5.5); LYMPHOCYTES % (AUTO) 2.2 % (20.5-51.5); MEAN CORPUSCULAR HEMOGLOBIN 28 pg (27-31); MEAN CORPUSCULAR HGB CONC 34 % (32-36); MEAN CORPUSCULAR VOLUME 83 fL (79.0-98.0); MONOCYTES # (AUTO) 0.6 K/uL (0.0-1.0); MONOCYTES % (AUTO) 5.2 % (1.7-9.3); NEUTROPHILS # (AUTO) 11.4 K/uL (1.8-7.7); NEUTROPHILS % (AUTO) 92.6 % (40.0-70.0); PLATELET COUNT (AUTO) 177 K/uL (130-430); RED BLOOD CELL COUNT(AUTO) 3.94 MIL/uL (4.2-6.2); RED CELL DISTRIBUTION WIDTH 16.5 % (9.0-15.0); WHITE BLOOD COUNT (AUTO) 12.3 K/uL (4.8-10.8)
--- NOTE | 2022-06-23 07:30 | NUR ---
Patient started to wake up, becoming agitated in bed, and starting to bite down on the ET tube. Patient's saturation is 86-88%, informed RT, and suctioned patient however patient's saturation is still within range of 86-88%. Called Dr. Spencer, informed MD about the situation and the current sedation gtt, also patient's mother wanting to talk to MD about possible extubation and/or when it will occur. MD states that no orders of extubating patient as of right now, and to keep patient sedated in order for the ventilator to provide oxygenation. MD is aware of family wanting to speak to him when he is at bedside, no additional orders or questions noted at the moment. Will reinforce if needed throughout the shift, and continue to keep patient sedated until further notice.
--- NOTE | 2022-06-23 07:45 | NUR ---
Dr. Gonzalez rounded at bedside, provided nursing updates and had no additional orders noted at the moment. Will reinforce if needed throughout the shift.
[2022-06-23 08:00] LABS: CALCIUM 8.5 mg/dL (8.4-11.0); CREATININE 0.97 mg/dL (0.55-1.30); POTASSIUM 4.2 mmol/L (3.5-5.1)
[2022-06-23] MEDS: PANTOPRAZOLE SODIUM 40 MG/VIAL (PROTONIX) IVP SCH (08:01)
[2022-06-23] MEDS: ENOXAPARIN SODIUM 40 MG/0.4 ML SYRINGE SUBCUT SCH (08:01)
--- NOTE | 2022-06-23 08:40 | NUR ---
Dr. Spencer rounded at bedside, MD is aware of the situation that occurred last night and this morning with patient waking up with changes on the sedation gtt. Per MD, OK to keep patient sedated until further notice and probably start weaning protocols by Sunday to Sunday per Dr. Spencer's order. MD is aware of patient de-saturating in the 86-88%, MD ordered ABGs, chest xray, and CTA to rule out PE. [facility], no additional complications noted at the moment and will reinforce if needed throughout the shift.
[2022-06-23] MEDS ORDERED: D5W 1,000 ML IV PRN (08:45)
[2022-06-23] MEDS ORDERED: DEXTROSE 50%-WATER 50 ML DISP.SYRIN IVP PRN (08:45)
[2022-06-23] MEDS ORDERED: GLUCOSE (DEXTROSE) ORAL GEL -Adults PO PRN (08:45)
--- NOTE | 2022-06-23 09:00 | NUR ---
Patient's family member at bedside, provided nursing updates. Yoselyn (mother) had no questions noted at the end of the conversation, and paged Dr. Spencer to provide medical updates to Yoselyn via telephone. Yoselyn had no further questions noted after speaking with Dr. Spencer, will reinforce if needed throughout the shift.
--- NOTE | 2022-06-23 09:23 | NUR ---
Dr. Spencer at bedside and is aware of most current ABG levels, made some changes and informed RT. No additional orders noted at the moment, will reinforce if needed throughout the shift.
[2022-06-23] MEDS: NACL 0.9% 1,000 ML IV SCH ×2 (09:33→21:15)
[2022-06-23] MEDS ORDERED: INSULIN LISPRO SLIDING SCALE 100 UNITS/ML VIAL (humaLOG) SUBCUT PRN (10:00)
--- NOTE | 2022-06-23 10:15 | NUR ---
PC decreased to 20cmH@O from 25 per MD order post ABG, FIO2 increased to 50% due to O2 sat 88%. RN and MD aware. Addendum: 06/23/22 at 1017 by Mikala Izaguirre RT Amended: Links added.
--- NOTE | 2022-06-23 11:30 | NUR ---
RESOLUTE PROFESSIONAL ACSW Alejandra met with patient's mother Yoselyn and cousin in the ICU waiting room. ACSW provided emotional support and utilized empathetic listening skills to acknowledge their continued concerns for patient. As requested, ACSW provided letter depicting admit date and continuing care in ICU. ACSW also discussed patient's needs following discharge related to housing. ACSW will continue to be available as needed
--- NOTE | 2022-06-23 12:52 | NUR ---
Per Dr. Spencer's order for CTA to rule out PE, the radiologist requires consent for dye for the CT. Patient's mother (Yoselyn) at bedside, attempted to obtain for consent, however Yoselyn refused to give consent due to personal experience of other family members not being able to function properly after dye administration. Explained to her the benefits, and the importance to see patient's chest with dye, but continues to refuse to give consent. Will inform Dr. Spencer about the situation, and informed storage battery charger (Amol) about the situation, at the moment no consent was given for CTA. Will reinforce if needed throughout the shift.
--- NOTE | 2022-06-23 13:03 | NUR ---
Spoke to Dr. Spencer on the phone and informed MD about the findings with family rejecting consent for CTA, MD is OK with that and wants to proceed with lower extremity doppler, MD is aware of most recent triglycerides level of 74, OK to continue with propofol gtt. Will reinforce if needed throughout the shift.
--- NOTE | 2022-06-23 14:15 | NUR ---
ed tech at bedside to perform doppler check, no complications noted at the moment, and will reinforce if needed throughout the shift.
[2022-06-23] MEDS: AZITHROMYCIN 500 MG in NS 250 ML IV SCH (15:06)
--- NOTE | 2022-06-23 15:45 | NUR ---
Performed CHG bath on patient, changed linens, and no complications noted at the moment, will reinforce if needed throughout the shift. Patient tolerated big turns.
[2022-06-23] MEDS: QUEtiapine FUMARATE 25 MG TABLET PO SCH (21:00)
[2022-06-24] VITALS (36 sets, daily range): BP systolic 124–164
[2022-06-24] MEDS: MIDAZOLAM IN NACL,ISO-OSMOT/PF 100 ML IV PRN ×2 (02:53→07:57)
[2022-06-24] MEDS: ALBUTEROL SULFATE 0.083% 2.5 MG/3 ML VIAL.NEB INH SCH ×6 (03:33→23:36)
[2022-06-24] MEDS: MORPHINE SULFATE IN 0.9 % NACL 100 ML IV PRN (04:41)
[2022-06-24 08:12] LABS: CALCIUM 8.4 mg/dL (8.4-11.0); CREATININE 1.02 mg/dL (0.55-1.30); POTASSIUM 3.8 mmol/L (3.5-5.1)
[2022-06-24] MEDS: THEOPHYLLINE ANHYDROUS 80 MG/15 ML UDC PO SCH ×3 (08:20→20:53)
[2022-06-24] MEDS: methylPREDNISolone SOD SUCC/PF 62.5 MG/ML VIAL IVP SCH ×2 (08:21)
[2022-06-24] MEDS: ENOXAPARIN SODIUM 40 MG/0.4 ML SYRINGE SUBCUT SCH (08:34)
[2022-06-24] MEDS: PANTOPRAZOLE SODIUM 40 MG/VIAL (PROTONIX) IVP SCH (08:34)
[2022-06-24 08:52] LABS: BASOPHILS % (AUTO) 0.1 % (0.0-2.0); EOSINOPHILS % (AUTO) 0.1 % (0.0-4.0); HEMATOCRIT 33.3 % (36-54); HEMOGLOBIN 11.3 g/dL (14.0-18.0); LYMPHOCYTES # (AUTO) 0.2 K/uL (1.0-5.5); LYMPHOCYTES % (AUTO) 2.3 % (20.5-51.5); MEAN CORPUSCULAR HEMOGLOBIN 28 pg (27-31); MEAN CORPUSCULAR HGB CONC 34 % (32-36); MEAN CORPUSCULAR VOLUME 83 fL (79.0-98.0); MONOCYTES # (AUTO) 0.7 K/uL (0.0-1.0); MONOCYTES % (AUTO) 6.7 % (1.7-9.3); NEUTROPHILS # (AUTO) 8.8 K/uL (1.8-7.7); NEUTROPHILS % (AUTO) 90.8 % (40.0-70.0); PLATELET COUNT (AUTO) 185 K/uL (130-430); RED BLOOD CELL COUNT(AUTO) 4.02 MIL/uL (4.2-6.2); RED CELL DISTRIBUTION WIDTH 16.6 % (9.0-15.0); WHITE BLOOD COUNT (AUTO) 9.7 K/uL (4.8-10.8)
[2022-06-24] MEDS ORDERED: FUROSEMIDE 40 MG/4 ML VIAL IVP ONE (09:15)
[2022-06-24] MEDS: PROPOFOL DRIP 1000 MG/ 100 ML BTL IV PRN ×3 (09:23→20:52)
[2022-06-24] MEDS ORDERED: predniSONE 20 MG TABLET PO ONE (09:30)
[2022-06-24] MEDS: NACL 0.9% 1,000 ML IV SCH ×2 (09:56→21:49)
[2022-06-24] MEDS: AZITHROMYCIN 500 MG in NS 250 ML IV SCH (16:58)
--- NOTE | 2022-06-24 17:51 | NUR ---
PT RECV'D IN AM BY NOC RN ANA MARIA. INFORMED OF PT VERY COMBATIVE IF SEDATION WEANED AND DR. STARR WANTED TO KEEP PT SEDATED FOR 1 MORE DAY. PT ON PROPOFOL, MORPHINE, AND VERSED. WEANED PT OFF MORPHINE THEN VERSED. PT CONT WITH PROPOFOL FOR SEDATION. NAD NOTED. CONT ON SHIP'S PILOT WITH NSR NOTED. BP STABLE. CONT ON VENT PC 20/5/50%/18. LUNGS CLEAR. DR. STARR ROUNDED TODAY, CONFIRMED TO KEEP PT SEDATED WITH POSSIBILITY TO WEAN OFF TOMORROW. BUE EDEMATOUS, LASIX ORDERED AND GIVEN WITH GOOD URINE RESPONSE. CONT WITH BILATERAL WRIST RESTRAINTS FOR SAFETY. CONT ON TF VIA OGT, AM RESIDUAL 100ML, RESIDUAL DECREASED THROUGHOUT SHIFT WITH 10ML AT 1600. PICC LINE INTACT, HOOD TO GRAVITY. FAMILY AT BS. INQUIRED WHY MOTHER WILL NOT SIGN CONSENT FOR CTA AND MOTHER STATES THAT SHE HAS KNOWN PEOPLE WITH A BAD EXPERIENCE WHEN RECEIVING CONTRAST AND DOES NOT THINK IT'S NECESSARY FOR CTA AT THIS TIME. ALL NEEDS ATTENDED TO. CALL LIGHT IN REACH. WILL CONT TO MONITOR.
--- NOTE | 2022-06-24 19:10 | NUR ---
ASSUMED CARE FROM IRMA RAZA FOR CONTINUITY OF CARE.
--- NOTE | 2022-06-24 20:00 | NUR ---
PT IS AWAKE AND STILL KEPT TRYING TO GET UP COUGHING MOST OF THE TIME DIPRIVAN INCREASED TO 50MCG/KG/MIN.
[2022-06-24] MEDS: QUEtiapine FUMARATE 25 MG TABLET PO SCH (20:53)
[2022-06-25] VITALS (29 sets, daily range): BP systolic 97–188
[2022-06-25] MEDS: PROPOFOL DRIP 1000 MG/ 100 ML BTL IV PRN ×5 (00:27→21:14)
[2022-06-25] MEDS: LORazepam 2 MG/ML VIAL IVP PRN (00:28)
[2022-06-25] MEDS: ALBUTEROL SULFATE 0.083% 2.5 MG/3 ML VIAL.NEB INH SCH ×5 (03:37→20:50)
--- NOTE | 2022-06-25 05:00 | NUR ---
CHG BATH GIVEN, CLEANED AND LINEN CHANGED SKIN INTACT, TURN AND REPOSITION TO COMFORT ORAL CARE DONE.
[2022-06-25] MEDS: THEOPHYLLINE ANHYDROUS 80 MG/15 ML UDC PO SCH ×3 (05:55→21:16)
[2022-06-25 06:55] LABS: BASOPHILS % (AUTO) 0.1 % (0.0-2.0); HEMATOCRIT 35.4 % (36-54); HEMOGLOBIN 12.2 g/dL (14.0-18.0); LYMPHOCYTES # (AUTO) 0.6 K/uL (1.0-5.5); LYMPHOCYTES % (AUTO) 5.5 % (20.5-51.5); MEAN CORPUSCULAR HEMOGLOBIN 28 pg (27-31); MEAN CORPUSCULAR HGB CONC 35 % (32-36); MEAN CORPUSCULAR VOLUME 82 fL (79.0-98.0); MONOCYTES # (AUTO) 1.3 K/uL (0.0-1.0); MONOCYTES % (AUTO) 12.6 % (1.7-9.3); NEUTROPHILS # (AUTO) 8.6 K/uL (1.8-7.7); NEUTROPHILS % (AUTO) 81.8 % (40.0-70.0); PLATELET COUNT (AUTO) 189 K/uL (130-430); RED BLOOD CELL COUNT(AUTO) 4.34 MIL/uL (4.2-6.2); RED CELL DISTRIBUTION WIDTH 16.4 % (9.0-15.0); WHITE BLOOD COUNT (AUTO) 10.5 K/uL (4.8-10.8)
[2022-06-25 07:45] LABS: CALCIUM 8.4 mg/dL (8.4-11.0); CREATININE 1.03 mg/dL (0.55-1.30); POTASSIUM 3.3 mmol/L (3.5-5.1)
[2022-06-25] MEDS: predniSONE 20 MG TABLET PO SCH (09:42)
[2022-06-25] MEDS: ENOXAPARIN SODIUM 40 MG/0.4 ML SYRINGE SUBCUT SCH (09:42)
[2022-06-25] MEDS: PANTOPRAZOLE SODIUM 40 MG/VIAL (PROTONIX) IVP SCH (09:42)
[2022-06-25] MEDS: hydrALAZINE HCL 20 MG/ML VIAL IVP PRN (11:37)
[2022-06-25] MEDS ORDERED: FUROSEMIDE 20 MG/2 ML VIAL IVP ONE (12:00)
[2022-06-25] MEDS: MORPHINE SULFATE IN 0.9 % NACL 100 ML IV PRN ×2 (12:23→21:16)
--- NOTE | 2022-06-25 13:04 | NUR ---
NOTIFIED DR STARR OF AB RESULTS, NO CHANGE IN ORDERS.
--- NOTE | 2022-06-25 13:15 | NUR ---
Pt noted to have an air leak in ET cuff. Cuff inflated with .5cc of air and RT notified. RT indicated that they had been having to add air into the cuff as well.
--- NOTE | 2022-06-25 13:20 | NUR ---
Pt had a large emesis with HOB up. Oral and ET suctioning provided. Pt now with vent alarming with low lung volumes. RR 20, sats 91% and 02 increased to 60%. Pt extremely diaphoretic. Temp 100 and tylenol given very recently via NG. Pt medicated with zofran IVP for nausea. Diprivan increased to 50mcgs and morphine drip at 9mg/hr
[2022-06-25] MEDS: ONDANSETRON HCL 4 MG/2 ML VIAL IVP PRN (13:30)
--- NOTE | 2022-06-25 13:30 | NUR ---
ER called for reintubation. MD in a procedure and will be down as soon as he can. Pts 02 sats 94% on 60% O2%. Pt continues to not get lung volumes but RR 22/min, HR 87 and RR 26. BP high 178/117 and patient is anxious. Morphine increased to 9 mg/hr.
--- NOTE | 2022-06-25 13:50 | NUR ---
Reintubated by Dr. Ridley with a 7.5 ET taped at 26cm lip line. Chest Xray done for placement verification.
--- NOTE | 2022-06-25 13:50 | NUR ---
RT NOTES Done by Dr Ridley, ETT exchanged due to busted cuff. 7.5 secured at 26cm lipline. Bilat. b/s/chest rise noted. No resistance when bagged and sxn via ETT. Colorimetric changed to yellow. CXR to confirm placement was ordered. Bloody secretion noted after tube exchange.
--- NOTE | 2022-06-25 14:40 | NUR ---
Called ER, spoke to Joanie SOLIS, to remind Dr. Ridley to read the CXR for ET placement.
--- NOTE | 2022-06-25 15:10 | NUR ---
Nutrition F/U RD reviewed pt's current EMR including diet Hx, physician notes, nursing notes, pertinent labs/meds/procedures, care trends, and care activity. Short note d/t high workload. Current Diet Order/Nutrition Support: Jevity 1.5 at 50 ml/hr, Free Water Flush: 300 ml Q6h via OGT x3 days Subjective Info: RD rounded to ICU this afternoon. Covering RN reported that pt had vomited this afternoon and that TF had been off prior to this occurrence. Primary RN was on lunch break. Witnessed TF was off during visit to pt's bedside. Per EMR review, large emesis w/ HOB up; Diprivan and morphine IVs increased; family refused CT angiogram; continues intubated/sedated; LBM x1 06/21 (no BM noted in 4 days); 2+ pitting bilat hand edema noted; Deangelo scale: 13, no skin breakdown noted. GI consult may be warranted. NEW Estimated Energy Expenditure (kcals/day) 2172 (PSU d/t critical illness, intubated; Ve: 17.5, Tmax: 37.6'C) Estimated Protein Required (g/day) 68-82 (1-1.2 gm/kg CBW d/t critical illness, intubated) Estimated Fluid Required (l/day) 1.9 (1 ml/kcal/day for maintenance) Problem/Etiology/Signs/Symptoms Suboptimal nutritional intakes R/T metabolic demands AEB estimated nutritional requirements for critical illness/intubation. *Ongoing Risk for malnutrition R/T lifestyle factors AEB Hx of drug abuse and suspected unintentional wt loss. *Ongoing Expected Outcomes/Goals - Monitor tolerance of EN support w/ goal of pt meeting >80% of estimated nutritional needs, labs trending WNL, normal GI function, and skin integrity/wt maintenance Dietitian Recommendations * Consider GI consult * If/when medically appropriate, consider resuming Jevity 1.5 at 50 ml/hr (goal rate), Free Water Flush: 300 ml Q6h via OGT Provides: 2484 kcal/day, 76 gm protein/day, and 1747 ml free water/day Meets: 114% of estimated caloric needs, 93% of upper end of estimated protein needs, and 92% of estimated fluid needs Follow Up High Risk: F/U in 2-3 days
--- NOTE | 2022-06-25 15:20 | NUR ---
Dietitian Recommendations * Consider GI consult * If/when medically appropriate, consider resuming Jevity 1.5 at 50 ml/hr (goal rate), Free Water Flush: 300 ml Q6h via OGT Provides: 2484 kcal/day, 76 gm protein/day, and 1747 ml free water/day Meets: 114% of estimated caloric needs, 93% of upper end of estimated protein needs, and 92% of estimated fluid needs LP, MS, RD Please refer to Nutrition F/U for details.
--- NOTE | 2022-06-25 16:10 | NUR ---
RT NOTES Charge nurse informed me of change in FIO2 TO 0.60 during tube exchange, then decreased back down to 0.40 when sat was 96%. Sat is currently 91% on 0.40.
--- NOTE | 2022-06-25 16:10 | NUR ---
RT NOTES FIO2 to 0.50 due to low sat, 91%. Improved to 92%
--- NOTE | 2022-06-25 16:13 | NUR ---
NOTIFIED DR STARR THAT TUBE EXCHANGE OCCURRED AT 1350 BECAUSE BALLOON WAS DAMAGED ON ORIGINAL TUBE AND SIZE WAS DECREASED TO 7.5 AT 26 LIP LINE, PATIENT EXPERIENCED EMESIS PRIOR TO TUBE EXCHANGE WITH CONCERN FOR ASPIRATION, XRAY PERFORMED CONFIRMING PLACEMENT, NO CHANGE IN ORDERS.
[2022-06-25] MEDS: POTASSIUM CHLORIDE 20 MEQ TAB.PRT.SR PO PRN (16:26)
[2022-06-25] MEDS: QUEtiapine FUMARATE 25 MG TABLET PO SCH (21:16)
[2022-06-26] VITALS (31 sets, daily range): BP systolic 93–162
[2022-06-26] MEDS: ALBUTEROL SULFATE 0.083% 2.5 MG/3 ML VIAL.NEB INH SCH ×7 (03:37→23:39)
[2022-06-26 06:33] LABS: BASOPHILS % (AUTO) 0.1 % (0.0-2.0); EOSINOPHILS # (AUTO) 0.1 K/uL (0.0-0.4); EOSINOPHILS % (AUTO) 1.5 % (0.0-4.0); HEMATOCRIT 33.7 % (36-54); HEMOGLOBIN 11.5 g/dL (14.0-18.0); LYMPHOCYTES # (AUTO) 1.2 K/uL (1.0-5.5); LYMPHOCYTES % (AUTO) 14.3 % (20.5-51.5); MEAN CORPUSCULAR HEMOGLOBIN 28 pg (27-31); MEAN CORPUSCULAR HGB CONC 34 % (32-36); MEAN CORPUSCULAR VOLUME 82 fL (79.0-98.0); MONOCYTES # (AUTO) 1.1 K/uL (0.0-1.0); MONOCYTES % (AUTO) 13.5 % (1.7-9.3); NEUTROPHILS # (AUTO) 5.8 K/uL (1.8-7.7); NEUTROPHILS % (AUTO) 70.6 % (40.0-70.0); PLATELET COUNT (AUTO) 162 K/uL (130-430); RED CELL DISTRIBUTION WIDTH 15.9 % (9.0-15.0); WHITE BLOOD COUNT (AUTO) 8.2 K/uL (4.8-10.8)
[2022-06-26] MEDS: THEOPHYLLINE ANHYDROUS 80 MG/15 ML UDC PO SCH ×3 (06:48→21:10)
[2022-06-26] MEDS: PROPOFOL DRIP 1000 MG/ 100 ML BTL IV PRN ×5 (07:34→21:10)
[2022-06-26] MEDS: MORPHINE SULFATE IN 0.9 % NACL 100 ML IV PRN ×3 (07:35→21:08)
[2022-06-26 08:34] LABS: CALCIUM 8.6 mg/dL (8.4-11.0); CREATININE 0.9 mg/dL (0.55-1.30); POTASSIUM 3.2 mmol/L (3.5-5.1)
[2022-06-26] MEDS: ENOXAPARIN SODIUM 40 MG/0.4 ML SYRINGE SUBCUT SCH (09:27)
[2022-06-26] MEDS: predniSONE 20 MG TABLET PO SCH (09:27)
[2022-06-26] MEDS: PANTOPRAZOLE SODIUM 40 MG/VIAL (PROTONIX) IVP SCH (09:28)
[2022-06-26] MEDS: LORazepam 2 MG/ML VIAL IVP PRN (11:10)
[2022-06-26] MEDS: POTASSIUM CHLORIDE 20 MEQ TAB.PRT.SR PO PRN (13:06)
--- NOTE | 2022-06-26 15:30 | NUR ---
SPOKE WITH DR BANKS, NOTIFIED THAT PATIENT IS CURRENTLY ON 18MG/HR OF MORPHINE DRIP AND 70MCG/KG/MIN OF PROPOFOL. ASKED IF COULD START PATIENT ON VERSED IN ORDER TO TITRATE DOWN PROPOFOL. DR BANKS ORDERED TO START VERSED. MOTHER AT BEDSIDE, EDUCATED ON CHANGE IN MEDICATIONS, ANSWERED QUESTIONS, VOICED UNDERSTANDING OF EDUCATION, AND AGREED TO PROCEED WITH PLAN OF CARE.
[2022-06-26] MEDS: MIDAZOLAM IN NACL,ISO-OSMOT/PF 100 ML IV PRN (15:44)
[2022-06-26] MEDS: hydrALAZINE HCL 20 MG/ML VIAL IVP PRN (16:25)
--- NOTE | 2022-06-26 19:31 | NUR ---
Resumed care of patient at shift change from Wilner SOLIS, mother at bedside patient resting comfortably at this time. Sung SOLIS
[2022-06-26] MEDS: QUEtiapine FUMARATE 25 MG TABLET PO SCH (21:10)
[2022-06-27] VITALS (31 sets, daily range): BP systolic 88–173
[2022-06-27] MEDS: PROPOFOL DRIP 1000 MG/ 100 ML BTL IV PRN ×4 (01:22→18:55)
[2022-06-27] MEDS: ALBUTEROL SULFATE 0.083% 2.5 MG/3 ML VIAL.NEB INH SCH ×6 (02:17→23:28)
[2022-06-27] MEDS: MORPHINE SULFATE IN 0.9 % NACL 100 ML IV PRN ×3 (03:44→19:11)
[2022-06-27 06:40] LABS: BASOPHILS % (AUTO) 0.2 % (0.0-2.0); EOSINOPHILS # (AUTO) 0.3 K/uL (0.0-0.4); EOSINOPHILS % (AUTO) 3.4 % (0.0-4.0); HEMATOCRIT 33.5 % (36-54); HEMOGLOBIN 11.5 g/dL (14.0-18.0); LYMPHOCYTES # (AUTO) 1.3 K/uL (1.0-5.5); LYMPHOCYTES % (AUTO) 15.1 % (20.5-51.5); MEAN CORPUSCULAR HEMOGLOBIN 28 pg (27-31); MEAN CORPUSCULAR HGB CONC 34 % (32-36); MEAN CORPUSCULAR VOLUME 81 fL (79.0-98.0); MONOCYTES # (AUTO) 0.9 K/uL (0.0-1.0); NEUTROPHILS % (AUTO) 70.3 % (40.0-70.0); PLATELET COUNT (AUTO) 161 K/uL (130-430); RED BLOOD CELL COUNT(AUTO) 4.13 MIL/uL (4.2-6.2); WHITE BLOOD COUNT (AUTO) 8.6 K/uL (4.8-10.8)
[2022-06-27 07:02] LABS: ALBUMIN 2.2 g/dL (3.4-4.8); CALCIUM 8.6 mg/dL (8.4-11.0); CREATININE 0.9 mg/dL (0.55-1.30); POTASSIUM 3.5 mmol/L (3.5-5.1); TOTAL BILIRUBIN 0.6 mg/dL (0.0-1.0)
[2022-06-27] MEDS: THEOPHYLLINE ANHYDROUS 80 MG/15 ML UDC PO SCH ×3 (07:37→20:36)
[2022-06-27] MEDS: LORazepam 2 MG/ML VIAL IVP PRN ×3 (07:40→17:59)
[2022-06-27] MEDS: PANTOPRAZOLE SODIUM 40 MG/VIAL (PROTONIX) IVP SCH (08:04)
[2022-06-27] MEDS: predniSONE 20 MG TABLET PO SCH (08:04)
[2022-06-27] MEDS: ENOXAPARIN SODIUM 40 MG/0.4 ML SYRINGE SUBCUT SCH (08:04)
[2022-06-27] MEDS: chlordiazePOXIDE HCL 10 MG CAPSULE PO SCH ×2 (13:52→20:36)
--- NOTE | 2022-06-27 14:12 | NUR ---
DR BANKS AT BEDSIDE, UPDATED ON HOW TRIED TO WEAN PATIENT OFF OF SEDATION BUT AFTER MINOR DECREASE IN DOSES AND AN ATIVAN IVP THE PATIENT WAS ATTEMPTING TO KICK THE PRIMARY RN AND RT, EYES OPEN AND RESPONDING TO QUESTIONS, EXEMPLIFYING AGITATION. NOTIFIED DR BANKS THAT PATIENT IS CURRENTLY ON PROPOFOL, MORPHINE, AND VERSED DRIP, AND SEROQUEL 25MG QNIGHT AND ATIVAN [address] Q[address]HP[address] BANKS ORDERED TO INCREASE SEROQUEL DOSE TO 50MG BID AND ADD LIBRIUM 20MG Q8H. STATED WILL LET PATIENT REST TODAY AND ATTEMPT WEANING TOMORROW. REPEAT BACK VERIFIED. Addendum: 06/27/22 at 1418 by Ludmila Dominguez RN RN NOTE TIME FOR 4920 06/27/22.
--- NOTE | 2022-06-27 14:18 | NUR ---
SPOKE WITH PATIENT MOTHER OVER THE PHONE, UPDATED ON DR BANKS'S MEDICATION CHANGES AND PLAN TO HAVE PATIENT REST TODAY AND ATTEMPT WEANING TOMORROW. MOTHER VOICED THAT SHE IS FRUSTRATED AND HOPES HER SON CAN BE EXTUBATED SOON. EDUCATED ON WEANING PARAMETERS AND DESCRIBED PLAN OF CARE ON HOW STAFF IS WORKING TOWARD EXTUBATING THE PATIENT BUT THAT IT IS GOING TO TAKE MORE TIME BECAUSE THE PATIENT HAS NOT BEEN TOLERATING. MOTHER VOICED UNDERSTANDING. PRIMARY RN SPOKE WITH ONLINE COMMUNITY MANAGER AND EXPLAINED THAT PLAN OF CARE WAS DISCUSSED WITH MOTHER AND THE ONLINE COMMUNITY MANAGER STATED SHE WILL CALL THE MOTHER AND REINFORCE EDUCATION.
--- NOTE | 2022-06-27 15:30 | NUR ---
UNLOADER OPERATOR ACSW Alejandra spoke with patient's mother Yoselyn Leon via phone . She expressed frustration with patient continuing to be on a ventilator, she stated "patient is only 32, he's way to young to be on a ventilator this long". ACSW utilized empathetic listening skills, acknowledged her frustrations and concerns. Within ACSW scope of practice, ACSW attempted to educate Yoselyn on the plan to safely wean the patient. She continued to express frustration and disagreement with the plan of care. Patient's mother requested to speak to "someone higher because this isn't right". ACSW provided name and extension to Director Of Case Management Margareth and Director of ER and ICU Sofya. ACSW utilized elements of brief CBT and Problem Solving Therapy to de-escalate patient's mother and support reducing her anxiety. ACSW will continue to be available as needed.
[2022-06-27] MEDS: MIDAZOLAM IN NACL,ISO-OSMOT/PF 100 ML IV PRN (19:49)
[2022-06-27] MEDS: QUEtiapine FUMARATE 25 MG TABLET PO SCH (20:36)
[2022-06-28] VITALS (32 sets, daily range): BP systolic 87–170
[2022-06-28] MEDS: PROPOFOL DRIP 1000 MG/ 100 ML BTL IV PRN ×5 (03:22→20:42)
[2022-06-28] MEDS: MORPHINE SULFATE IN 0.9 % NACL 100 ML IV PRN ×2 (03:30→15:38)
[2022-06-28] MEDS: ALBUTEROL SULFATE 0.083% 2.5 MG/3 ML VIAL.NEB INH SCH ×6 (03:43→23:05)
[2022-06-28] MEDS: THEOPHYLLINE ANHYDROUS 80 MG/15 ML UDC PO SCH ×3 (05:45→20:40)
[2022-06-28] MEDS: chlordiazePOXIDE HCL 10 MG CAPSULE PO SCH ×3 (05:46→20:40)
[2022-06-28 07:01] LABS: HEMATOCRIT 33.2 % (36-54); HEMOGLOBIN 11.5 g/dL (14.0-18.0); MEAN CORPUSCULAR HEMOGLOBIN 28 pg (27-31); MEAN CORPUSCULAR HGB CONC 35 % (32-36); MEAN CORPUSCULAR VOLUME 81 fL (79.0-98.0); PLATELET COUNT (AUTO) 179 K/uL (130-430); RED BLOOD CELL COUNT(AUTO) 4.11 MIL/uL (4.2-6.2); RED CELL DISTRIBUTION WIDTH 15.7 % (9.0-15.0)
[2022-06-28 07:20] LABS: ALBUMIN 2.2 g/dL (3.4-4.8); CALCIUM 8.6 mg/dL (8.4-11.0); CREATININE 0.95 mg/dL (0.55-1.30); TOTAL BILIRUBIN 0.6 mg/dL (0.0-1.0)
[2022-06-28 08:11] LABS: POTASSIUM 3.6 mmol/L (3.5-5.1)
[2022-06-28] MEDS: ENOXAPARIN SODIUM 40 MG/0.4 ML SYRINGE SUBCUT SCH (08:22)
[2022-06-28] MEDS: predniSONE 20 MG TABLET PO SCH (08:23)
[2022-06-28] MEDS: QUEtiapine FUMARATE 25 MG TABLET PO SCH ×2 (08:23→20:40)
[2022-06-28] MEDS: PANTOPRAZOLE SODIUM 40 MG/VIAL (PROTONIX) IVP SCH (08:23)
--- NOTE | 2022-06-28 08:51 | NUR ---
DR BANKS AT BEDSIDE, DISCUSSED WITH PRIMARY RN AND MOTHER THAT HE IS ORDERING TO START PRECEDEX AND WEAN OFF OF OTHER SEDATION AND TRY TO HAVE PATIENT ONLY ON PRECEDEX. IN ADDITION STATED TO TRIAL ON PATIENT ON CPAP TOLERATED ONCE SEDATION HAS BEEN WEANED DOWN.
[2022-06-28 09:36] LABS: BASOPHILS # (AUTO) 0.1 K/uL (0.0-0.2); BASOPHILS % (AUTO) 0.1 % (0.0-2.0); EOSINOPHILS # (AUTO) 0.3 K/uL (0.0-0.4); EOSINOPHILS % (AUTO) 3.1 % (0.0-4.0); LYMPHOCYTES # (AUTO) 1.2 K/uL (1.0-5.5); LYMPHOCYTES % (AUTO) 11.6 % (20.5-51.5); MONOCYTES % (AUTO) 15.5 % (1.7-9.3); NEUTROPHILS % (AUTO) 69.7 % (40.0-70.0)
[2022-06-28] MEDS: DEXMEDETOMIDINE HCL 400 MCG in NS 96 ML IV PRN ×3 (10:41→22:15)
[2022-06-28] MEDS: LORazepam 2 MG/ML VIAL IVP PRN (17:03)
[2022-06-29] VITALS (20 sets, daily range): BP systolic 119–145
[2022-06-29] MEDS: ONDANSETRON HCL 4 MG/2 ML VIAL IVP PRN (02:07)
[2022-06-29] MEDS: ALBUTEROL SULFATE 0.083% 2.5 MG/3 ML VIAL.NEB INH SCH ×6 (02:30→23:00)
--- NOTE | 2022-06-29 02:30 | NUR ---
Pt self extubated himself. pt Vitals were as followed bp--145/94 HR-107, Resp-24, SPO2-96. Pt was given Ativan for agitation. Md was called and also pt mother was called. Pt is stable at this time.
--- NOTE | 2022-06-29 02:30 | NUR ---
RT NOTES CALLED TO BEDSIDE @ 0230 DUE TO PT SELF EXTUBATION. OBSERVED PT THRASHING AND SPITTING. PT REFUSED BREATHING TX AT THIS TIME. PT REMOVED NASAL CANNULA. SPO2 IS 99% ON ROOM AIR. B/S DIMINISHED. NO SOB NOTED. Addendum: 06/29/22 at 0253 by Tj Fisehr RT Amended: Links added.
--- NOTE | 2022-06-29 02:54 | NUR ---
DR EVELIA Lemus notified regarding self extubation. Vital signs given. No orders received.
[2022-06-29] MEDS: THEOPHYLLINE ANHYDROUS 80 MG/15 ML UDC PO SCH ×3 (05:39→21:31)
[2022-06-29] MEDS: chlordiazePOXIDE HCL 10 MG CAPSULE PO SCH ×3 (05:39→21:31)
--- NOTE | 2022-06-29 06:20 | NUR ---
PT CENTRAL LINE DRESSING WAS CHANGED TODAY.
[2022-06-29] MEDS ORDERED: MORPHINE SULFATE IN 0.9 % NACL 100 ML IV PRN (08:45)
[2022-06-29 08:46] LABS: CALCIUM 8.9 mg/dL (8.4-11.0); CREATININE 1.05 mg/dL (0.55-1.30); POTASSIUM 3.5 mmol/L (3.5-5.1)
--- NOTE | 2022-06-29 08:50 | NUR ---
ETA FOR ST SWALLOW EVAL IN AFTERNOON, BEDSIDE RN SWALLOW SCREEN PERFORMED. PT TOLERATED ICE AND SIPS OF LIQUIDS WITHOUT COUGHING. TO GIVE PO MEDS. NPO EXCEPT MEDS UNITIL SWALLOW EVAL PERFORMED. PT UPDATED ON PLAN OF CARE. VSS. NAD NOTED. WILL CONT TO MONITOR PT.
[2022-06-29] MEDS: predniSONE 20 MG TABLET PO SCH (09:00)
[2022-06-29] MEDS ORDERED: MORPHINE 2 MG/ML INJ. SYRINGE IVP PRN ×2 (09:00)
[2022-06-29] MEDS: ENOXAPARIN SODIUM 40 MG/0.4 ML SYRINGE SUBCUT SCH (09:00)
[2022-06-29] MEDS: QUEtiapine FUMARATE 25 MG TABLET PO SCH ×2 (09:00→21:31)
[2022-06-29] MEDS ORDERED: LORazepam 2 MG/ML VIAL IVP PRN (09:00)
[2022-06-29] MEDS: PANTOPRAZOLE SODIUM 40 MG/VIAL (PROTONIX) IVP SCH (09:00)
[2022-06-29 13:06] LABS: RED BLOOD CELL COUNT(AUTO) 4.71 MIL/uL (4.2-6.2)
[2022-06-29 13:07] LABS: BASOPHILS % (AUTO) 0.2 % (0.0-2.0); HEMATOCRIT 38.1 % (36-54); LYMPHOCYTES # (AUTO) 1.5 K/uL (1.0-5.5); LYMPHOCYTES % (AUTO) 11.4 % (20.5-51.5); MEAN CORPUSCULAR HEMOGLOBIN 28 pg (27-31); MEAN CORPUSCULAR HGB CONC 34 % (32-36); MEAN CORPUSCULAR VOLUME 81 fL (79.0-98.0); MONOCYTES % (AUTO) 12.2 % (1.7-9.3); NEUTROPHILS # (AUTO) 9.4 K/uL (1.8-7.7); NEUTROPHILS % (AUTO) 74.2 % (40.0-70.0); PLATELET COUNT (AUTO) 179 K/uL (130-430); RED CELL DISTRIBUTION WIDTH 15.6 % (9.0-15.0)
[2022-06-29 13:20] LABS: EOSINOPHILS # (AUTO) 0.3 K/uL (0.0-0.4); MONOCYTES # (AUTO) 1.6 K/uL (0.0-1.0)
[2022-06-29 13:21] LABS: WHITE BLOOD COUNT (AUTO) 12.7 K/uL (4.8-10.8)
--- NOTE | 2022-06-29 15:00 | NUR ---
RN NOTES TOOK OVER CARE, PATIENT DOZING AT THIS TIME. SINUS RHYTHM ON THE MONITOR. FAMILY AT BEDSIDE.
--- NOTE | 2022-06-29 17:20 | NUR ---
ST EVALUATION COMPLETED. ST TX NOT INDICATED AT THIS TIME. RECOMMEND PO DIET OF PUREE/THIN LIQUID. 1:1 FEEDER AND FULL ASPIRATION PRECAUTIONS
--- NOTE | 2022-06-29 18:00 | NUR ---
RN NOTES APPEARS COMFORTABLE, FAMILY AT BEDSIDE. VITALS STABLE.
--- NOTE | 2022-06-29 20:35 | NUR ---
TELE TRANSFER PATIENT TRANSFERRED TO TELE ROOM 111A. ALL BELONGINGS SENT WITH PATIENT. VSS AT TIME OF TRANSFER. SECOND RN PRESENT FOR TRANSFER. ALL CARE ENDORSED TO IRMA ROSENTHAL.
--- NOTE | 2022-06-29 20:45 | NUR ---
NOTES RECEIVED PATIENT FROM ICU, AWAKE, ALERT, ORIENTED X4, VITALS STABLE. DENIES PAIN AT THIS TIME. ASSESSMENT DONE AND DOCUMENTED. NEEDS ATTENDED TO. SAFETY AND FALL MEASURES IN PLACED. CALL LIGHT PLACED WITHIN REACH.
[2022-06-30 00:32] VITALS: BP_SYST 132
[2022-06-30] MEDS: ALBUTEROL SULFATE 0.083% 2.5 MG/3 ML VIAL.NEB INH SCH ×3 (03:00→10:54)
[2022-06-30] MEDS: chlordiazePOXIDE HCL 10 MG CAPSULE PO SCH (05:25)
[2022-06-30] MEDS: THEOPHYLLINE ANHYDROUS 80 MG/15 ML UDC PO SCH (06:00)
[2022-06-30] MEDS: ENOXAPARIN SODIUM 40 MG/0.4 ML SYRINGE SUBCUT SCH (10:59)
[2022-06-30] MEDS: PANTOPRAZOLE SODIUM 40 MG/VIAL (PROTONIX) IVP SCH (11:02)
[2022-06-30] MEDS: predniSONE 20 MG TABLET PO SCH (11:04)
--- NOTE | 2022-06-30 15:44 | NUR ---
P.T. NOTES P.T. EVAL NOT DONE, PER STAFF, Pt LEFT AMA.
== END 2022-06-30 16:50 | disposition left against medical advice (07) | DRG 130 ==
LOC: SED 21:05 → SIC 06-20 02:09 → STU 06-29 20:48
PROVIDERS: ADMIT General Practice; ATTEND General Practice
PROC: 5A1955Z Respiratory Ventilation, Greater than 96 Consecutive Hours (ICD-10-PCS; principal; 2022-06-20)
PROC: 05HY33Z Insertion of Infusion Device into Upper Vein, Percutaneous Approach (ICD-10-PCS; 2022-06-20)
PROC: 0BH17EZ Insertion of Endotracheal Airway into Trachea, Via Natural or Artificial Opening (ICD-10-PCS; 2022-06-20)
DX: J96.00 Acute respiratory failure, unspecified whether with hypoxia or hypercapnia (principal); J45.901 Unspecified asthma with (acute) exacerbation; F15.10 Other stimulant abuse, uncomplicated; Z53.29 Procedure and treatment not carried out because of patient's decision for other reasons; R00.1 Bradycardia, unspecified; Z20.822 Contact with and (suspected) exposure to COVID-19; Z79.51 Long term (current) use of inhaled steroids; Z82.5 Family history of asthma and other chronic lower respiratory diseases; Z56.0 Unemployment, unspecified
CPT/HCPCS: 36415; 36600; 71045; 80048; 80053; 80307; 82803-TC; 82962; 83036; 83735; 83880; 84478; 85007; 85025; 85027; 85379; 85610-TC; 85730-TC; 87070-TC; 87081; 87205-TC; 92610-GN; 93005; 93306; 93970; 94002; 94003; 94640; 96365; 96372; 96375; 99291; C9113; G0378; G0482; J0171; J0330; J0360; J0456; J1030; J1650; J1940; J2060; J2250; J2270; J2405; J2704; J2930; J3105; J3475; J3490; J7050; J7512; J7613

== ENCOUNTER 2023-04-29 11:58 | Inpatient (IN) | payer MEDICAID ==
[~2023-04-29] VITALS: Ht 175.3 cm; Wt 68.9 kg
[~2023-04-29 11:58] MED LIST changes: -ETOMIDATE 20 MG/ 10 ML VIAL (AMIDATE) ONE; -SUCCINYLCHOLINE CHLORIDE 20 MG/ML(QUELICIN) ONE
[2023-04-29 12:03] VITALS: BP_SYST 158; PULSE 95; RESP 22; TEMP 97.9; O2SAT 97
--- NOTE | 2023-04-29 12:05 | NUR ---
Placed in room 01 . Placed on area cleaner, blood pressure machine and pulse oximeter. To gown for exam. Side rails up. Report given to CHELSEA GARCIA.
[2023-04-29] MEDS ORDERED: ALBUTEROL SULFATE 0.083% 2.5 MG/3 ML VIAL.NEB INH ONE ×3 (12:08→13:45)
[2023-04-29] MEDS ORDERED: IPRATROPIUM BROM 0.5 MG/2.5 ML VIAL.NEB (ATROVENT) INH ONE ×3 (12:08→13:45)
--- NOTE | 2023-04-29 12:08 | NUR ---
RECEIVED PT FROM IRMA BANERJEE. PT BIBA ACLS FOR C/O SOB. PT HAS HISTORY OF ASTHMA AND HAS BEEN GIVEN A BREATHING TX WITH NO RESOLVE IN SOB. PT IS AAOX4, DIAPHORETIC, ACCESSORY MUSCLES NOTED WITH BILATERAL EXPIRATORY WHEEZE, PT IS ON R/A, O2 SAT 97%. PT DENIES PAIN. PT DENIES N/V/D/C, DISTAL PULSES NORMAL. PT HAS BILATARAL HAND TRACE EDEMA. IV CATH 18G TO RAC, S/L. PT PLACED ON CENTRAL SUPPLY TECH, SIDERAILS UP X2.
[2023-04-29] MEDS ORDERED: METHYLPREDNISOLONE SOD SUCC 40 MG/ML VIAL IVP ONE ×2 (12:15)
[2023-04-29] MEDS ORDERED: NACL 0.9% 1,000 ML IV ONE ×2 (12:15)
[2023-04-29] MEDS ORDERED: EPINEPHRINE HCL/PF 1 MG/ML AMP IM ONE ×2 (12:15→13:45)
[2023-04-29] MEDS ORDERED: MAGNESIUM SULFATE 50 ML IV ONE ×2 (12:15)
[2023-04-29] MEDS ORDERED: EPINEPHrine HCL 1 MG/ML VIAL IM ONE (12:15)
--- NOTE | 2023-04-29 12:15 | NUR ---
DR. BORRERO AT BEDSIDE TO ASSESS PT. R/T AT BEDSIDE INITIATING BREATHING TX.
[2023-04-29] MEDS ORDERED: LORazepam 2 MG/ML VIAL IVP ONE (12:30)
--- NOTE | 2023-04-29 12:30 | NUR ---
SOLUMEDROL 125MG IVP, EPINEPHRINE 0.3MG IM TO THE LEFT DELTOID GIVEN. MAG SO4 IVBP AND 1000ML NS INITIATED.
--- NOTE | 2023-04-29 12:50 | NUR ---
BLOOD OBTAINED AND TAKEN TO LAB.
--- NOTE | 2023-04-29 12:55 | NUR ---
IV TO LAC 18 INFILTRATED, REMOVED WITH TIP INTACT. SITE COVERED WITH CDI DRESSING. NEW IV CATH 22G TO LFA INITIATED AFTER 3RD ATTEMPT. SITE COVERED CDI DRESSING.
[2023-04-29 12:59] LABS: BASOPHILS % (AUTO) 0.4 % (0.0-2.0); EOSINOPHILS # (AUTO) 0.4 K/uL (0.0-0.4); EOSINOPHILS % (AUTO) 4.6 % (0.0-4.0); HEMATOCRIT 44.8 % (36-54); HEMOGLOBIN 14.9 g/dL (14.0-18.0); LYMPHOCYTES # (AUTO) 1.3 K/uL (1.0-5.5); LYMPHOCYTES % (AUTO) 16.4 % (20.5-51.5); MEAN CORPUSCULAR HEMOGLOBIN 27 pg (27-31); MEAN CORPUSCULAR HGB CONC 33 % (32-36); MEAN CORPUSCULAR VOLUME 79 fL (79.0-98.0); MONOCYTES # (AUTO) 0.7 K/uL (0.0-1.0); MONOCYTES % (AUTO) 9.4 % (1.7-9.3); NEUTROPHILS # (AUTO) 5.5 K/uL (1.8-7.7); NEUTROPHILS % (AUTO) 69.2 % (40.0-70.0); PLATELET COUNT (AUTO) 219 K/uL (130-430); RED BLOOD CELL COUNT(AUTO) 5.65 MIL/uL (4.2-6.2); RED CELL DISTRIBUTION WIDTH 16.8 % (9.0-15.0); WHITE BLOOD COUNT (AUTO) 7.9 K/uL (4.8-10.8)
[2023-04-29 13:13] LABS: ANION GAP 11 (5-15); CALCIUM 9.2 mg/dL (8.4-11.0); CHLORIDE 99 mmol/L (98-107); CREATININE 0.96 mg/dL (0.55-1.30); GFR AFRICAN AMERICAN 117 mL/min (>90); GLUCOSE 109 mg/dL (74-106); UREA NITROGEN, BLOOD 12 mg/dL (8-21)
--- NOTE | 2023-04-29 13:13 | NUR ---
ATIVAN 1MG IVP GIVEN FOR ANXIETY.
[2023-04-29 13:18] LABS: ALANINE AMINOTRANSFERASE 26 U/L (12-78); ALBUMIN 4.1 g/dL (3.4-4.8); ASPARTATE AMINOTRANSFERASE 29 U/L (10-37); TOTAL BILIRUBIN 0.5 mg/dL (0.0-1.0)
--- NOTE | 2023-04-29 13:41 | NUR ---
Admit bed requested Patient will be admitted to care of . Admitted to TELEMETRY unit. Diagnosis ACUTE RESPIRATORY FAILURE, ASTHMA EXACERBATION Inpatient (Yes or No) YES Observation (Yes or No) NO Orientation concerns or request close to nursing station (Yes or No) NO Covid Status N/A On vent or bipap NO Isolation requirements NONE Needs a sitter NO From Home (Yes or if No enter name of facility) HOMELESS Requires Dialysis (Yes or No) NO Med Rec Completed (Yes of No) PENDING
--- NOTE | 2023-04-29 14:15 | NUR ---
DR. BANKS MADE AWARE HE IS CONSULT FOR THIS PT. REPORT GIVEN. RECEIVED ORDER FOR BIPAP PRN. ORDER CARRIED OUT. PT HAS ABDOMINAL SEE SAW BREATHING 02 SAT MAINTAINING AT 96%. PT PLACED ON BIPAP I10/E5 RR 16. PT'S O2 SAT 97% RR 17. PT SLEEPING CALMLY AT THIS TIME.
[2023-04-29 14:20] VITALS: PULSE 107; O2SAT 98
--- NOTE | 2023-04-29 15:34 | NUR ---
PT TOLERATING BIPAP WELL O2 SAT 100%.
[2023-04-29 15:40] VITALS: PULSE 86
[2023-04-29] MEDS ORDERED: HYDROcodone/ACETAMIN 10-325 MG TAB PO PRN (16:00)
[2023-04-29] MEDS ORDERED: HYDROcodone/ACETAMIN 5-325 MG TAB (NORCO/ VICODIN) PO PRN (16:00)
[2023-04-29] MEDS ORDERED: NALOXONE HCL 0.4 MG/ML AMP (NARCAN) IVP PRN ×2 (16:00)
[2023-04-29] MEDS ORDERED: ONDANSETRON HCL 4 MG/2 ML VIAL IVP PRN (16:00)
[2023-04-29] MEDS ORDERED: ACETAMINOPHEN 325 MG TABLET PO PRN ×2 (16:00→16:30)
[2023-04-29 17:05] VITALS: PULSE 88
[2023-04-29 19:00] VITALS: BP_SYST 145; PULSE 98; RESP 19; TEMP 97.5; O2SAT 95
[2023-04-29] MEDS: ALBUTEROL SULFATE 0.083% 2.5 MG/3 ML VIAL.NEB INH SCH ×2 (19:00→23:00)
[2023-04-29] MEDS: IPRATROPIUM BROM 0.5 MG/2.5 ML VIAL.NEB (ATROVENT) INH SCH ×2 (19:00→23:00)
--- NOTE | 2023-04-29 19:00 | NUR ---
Admission note: patient arrived the floor via gurney. Awake alert x4. No pain or discomfort complained at this time. Oriented room and call light in reach. Instructed to call nurses for help if he needs anything. Report received from Joanie. Telemetry machine applied and vital checked. Will endorse to slip box changer nurse to continue admission and patient care.
--- NOTE | 2023-04-29 19:06 | NUR ---
Patient will be admitted to care of DR. ECHOLS/IRMA VALDEZ. Admitted to TELEMETRY unit. Will go to room 106B. Belongings list completed. Complete and up to date summary report printed. SBAR report to be given at bedside with opportunity for questions.
--- NOTE | 2023-04-29 19:39 | NUR ---
Closing note: reported to Gurpreet. Patient is resting in bed. Call light in reach. No pain or discomfort at this time. Endorse to continue the admission and patient care.
--- NOTE | 2023-04-29 20:00 | NUR ---
patient Awake alert x4. No pain or discomfort complained at this time. Pt states that he has SOB, given 2L nc. Oriented room and call light in reach. Instructed to call nurses for help if he needs anything.pt vomitted onto floor, pt states he feels a little later on. . Telemetry machine applied and vital checked. Will endorse to date night caregiver nurse to continue admission and patient care.
[2023-04-29] MEDS: methylPREDNISolone SOD SUCC/PF 62.5 MG/ML VIAL IVP SCH (23:16)
[2023-04-29] MEDS: NORMAL SALINE 5 ML DISP.SYRIN IVF SCH (23:19)
[2023-04-29 23:29] VITALS: BP_SYST 142; PULSE 95; RESP 18; TEMP 98.6; O2SAT 97
[2023-04-30] VITALS (9 sets, daily range): BP systolic 138–144; PULSE 70–98; RESP 17–20; TEMP 96.6–98.9; O2SAT 93–100
[2023-04-30] MEDS: ALBUTEROL SULFATE 0.083% 2.5 MG/3 ML VIAL.NEB INH SCH ×6 (03:00→23:00)
[2023-04-30] MEDS: IPRATROPIUM BROM 0.5 MG/2.5 ML VIAL.NEB (ATROVENT) INH SCH ×6 (03:00→23:00)
[2023-04-30] MEDS: methylPREDNISolone SOD SUCC/PF 62.5 MG/ML VIAL IVP SCH ×2 (09:00→21:03)
--- NOTE | 2023-04-30 14:46 | NUR ---
Machine Fastener CONTACT [employer] received two referrals to see pt, homeless. CONTACT [employer]FFER looked up pt. He has a long history of hospital visits, long history of drug useage and homelessness. CONTACT [employer] introduced self to pt. and mom who was at bedside. Pt. was tired, low energy and was very calm. CONTACT [employer]FFER asked pt. if he knew what brought him to the hospital. Pt stated he was here for Asthma. CONTACT [employer]FFER informed him an additional dx. on face sheet stated, acute respiratory failure. CONTACT [employer] asked what drugs he uses. Pt. was quiet for a while and just stated "Drugs". CONTACT [employer] asked pt. if he was interested in a substance abuse program. Pt. and mom both stated pt. had to complete his Domestic Violence Pgrm. Pt. has 22 classes (22 weeks) left to complete to the courts by his [birth year] 06[birth year]. Pt. stated he had begun classes, but he missed because of Covid and had a oconnell time getting back in. Pt. stated he will be able to complete the classes at the same place in which he enrolled in and began with. CONTACT [employer] suggested participating in a substance abuse program as well as NA. CONTACT [employer] BUFFER aske pt. if he has ever participated in mental health therapy. Pt. stated he has not. CONTACT [employer] BUFFER educated pt. on the benefits of counseling. With pts. history of drug usage and coping skills, pt would benefit, learn new coping skills and what if behind his drug usage. CONTACT [employer] went through the resources packets with pt. Pt. stated he does not have a PCP. CONTACT [employer] asked why and if he has ever had to go to the doctors. Pts. momYoselyn stated pt. never goes to the doctors, too hard to make apts. being homeless. CONTACT [employer] explained to pt. CONTACT [employer] also conducted a Homeless Assessment and places a Homeless Waiver in the chart. Pt declined clothing, any shots and transporation. Pt would like a lunch packed upon discharge.
[2023-04-30 15:09] LABS: BASOPHILS % (AUTO) 0.2 % (0.0-2.0); EOSINOPHILS % (AUTO) 0.1 % (0.0-4.0); HEMATOCRIT 43.7 % (36-54); HEMOGLOBIN 14.5 g/dL (14.0-18.0); LYMPHOCYTES # (AUTO) 1.4 K/uL (1.0-5.5); LYMPHOCYTES % (AUTO) 8.5 % (20.5-51.5); MEAN CORPUSCULAR HEMOGLOBIN 26 pg (27-31); MEAN CORPUSCULAR HGB CONC 33 % (32-36); MEAN CORPUSCULAR VOLUME 79 fL (79.0-98.0); MONOCYTES # (AUTO) 1.8 K/uL (0.0-1.0); MONOCYTES % (AUTO) 10.9 % (1.7-9.3); NEUTROPHILS # (AUTO) 13.2 K/uL (1.8-7.7); NEUTROPHILS % (AUTO) 80.3 % (40.0-70.0); PLATELET COUNT (AUTO) 240 K/uL (130-430); RED BLOOD CELL COUNT(AUTO) 5.56 MIL/uL (4.2-6.2); RED CELL DISTRIBUTION WIDTH 16.8 % (9.0-15.0); WHITE BLOOD COUNT (AUTO) 16.4 K/uL (4.8-10.8)
[2023-04-30 15:37] LABS: ALBUMIN 4.1 g/dL (3.4-4.8); CALCIUM 9.2 mg/dL (8.4-11.0); CREATININE 0.9 mg/dL (0.55-1.30); TOTAL BILIRUBIN 0.9 mg/dL (0.0-1.0)
[2023-04-30 16:46] LABS: INR 1.1 (0.80-1.20); PROTHROMBIN TIME 11.6 SECS (9.5-12.5)
--- NOTE | 2023-04-30 19:39 | NUR ---
PM ASSESSMENT; Patient is awake, alert, oriented X 4. Pt denies any chest pain,pain,sob,or any acute distress. Patient oriented to hospital room, call light, toileting, pain management and safety-teach back done. Urinal is at bedside. IV site patent after flushed well w/ NS, no s/s any infiltration noted. Patient informed that I ( Serene) will be his nurse and that his room number is 106-B. Side rails x2, call light within reach. Cont to monitor pt.
--- NOTE | 2023-04-30 19:42 | NUR ---
NOTES; BREATHING TXMT IS GIVING BY RESP THERAPIST NOW.
[2023-04-30] MEDS: NORMAL SALINE 5 ML DISP.SYRIN IVF SCH (21:03)
--- NOTE | 2023-04-30 21:33 | NUR ---
PATIENT HAS AUDIBLE WHEEZING WITH BREATHING TREATMENTS. QUITE WEAK WELL NEEDING ASSISTANCE TO USE BATHROOM. CONTINUES TO BE ON TELEMETRY. MOTHER CAME TO SEE PATIENT. MULTIPLE LABS. RULING OUT TB NO EXCESSIVE COUGHING SKIN DRY AND INTACT. REFUSES MOST INTERVENTION'S AND ORDERS PATIENT TEACHING IN REGARD TO COMPLIANCE
--- NOTE | 2023-05-01 00:48 | NUR ---
ROUNDS; PT REFUSED VITAL SIGN TO BE TAKEN -Pt is resting in bed comfortably. Pt denies any chest pain,pain,sob,or acute distress noted. Fall precaution in place. Bed alarmed, side rail x3, call light within reach. Emptied 200ml yellow urine output. Cont to monitor pt.
[2023-05-01] MEDS: IPRATROPIUM BROM 0.5 MG/2.5 ML VIAL.NEB (ATROVENT) INH SCH ×2 (03:00→07:42)
[2023-05-01] MEDS: ALBUTEROL SULFATE 0.083% 2.5 MG/3 ML VIAL.NEB INH SCH ×2 (03:00→07:41)
--- NOTE | 2023-05-01 03:15 | NUR ---
PATIENT REFUSED 2300 AND 0300 TREATMENTS. WAS AWOKEN FOR 2300 MEDICATION AND SAID HE DID NOT WANT IT. PT STATED HE DID NOT WANT TO BE WOKEN FOR 0300 TREATMENT. O2 SATURATION IS BETWEEN 96% AND 98%, PT IS HEMODYNAMICALLY STABLE, AND NO RESPIRATORY DISTRESS IS NOTED. PT WAS ASLEEP AT 0315, TXN NOT GIVEN. WILL CONTINUE TO MONITOR PATIENT.
--- NOTE | 2023-05-01 03:21 | NUR ---
NOTES; -Pt is incont of urine, wet gown and sheet, pt refused me to change him. Pt stated," No, I don't want to change because I want to sleep." Pt denies any chest pain,pain,sob,or acute distress noted. Fall precaution in place. Bed alarmed, side rail x3, call light within reach. Emptied 200ml yellow urine output. Cont to
[2023-05-01] MEDS: NORMAL SALINE 5 ML DISP.SYRIN IVF SCH (05:44)
--- NOTE | 2023-05-01 06:23 | NUR ---
CLOSING NOTES; PT REFUSED AM BLOOD DRAW AND PT REFUSED ME TO CHANGE GOWN AND BED SHEET. -Pt is resting in bed. Pt puts blanket over his face entire time. Pt refused me to check or to change his bed or gown. Pt stated," No, I don't want to change and I am not wet." Fall precaution in place. Bed alarmed, side rail x3, call light within reach. Will endorse to next nurse to continuity care.
[2023-05-01 07:41] VITALS: O2SAT 100
[2023-05-01 08:00] VITALS: BP_SYST 142; PULSE 77; RESP 20; TEMP 99.4; O2SAT 96
[2023-05-01] MEDS: methylPREDNISolone SOD SUCC/PF 62.5 MG/ML VIAL IVP SCH (09:53)
--- NOTE | 2023-05-01 09:53 | NUR ---
MD HERRERA PER DR ECHOLS TO LA TELE
[2023-05-01] MEDS ORDERED: PRED20TA PO (10:10)
[2023-05-01] MEDS ORDERED: PRED10TA PO (10:10)
[2023-05-01] MEDS ORDERED: ALBMDI INH (10:10)
[2023-05-01] MEDS ORDERED: ATRMDI INH (10:10)
[2023-05-01] MEDS ORDERED: FLO44 INH (10:10)
[2023-05-01 11:22] VITALS: BP_SYST 150; PULSE 66; RESP 20; TEMP 97.9; O2SAT 96
--- NOTE | 2023-05-01 11:30 | NUR ---
D/C Patient Patient given medication reconciliation form and D/C instructions. Exit Care provided. Patient verbalized understanding. MD discussed with patient the results and treatment provided. Ambulatory with steady gait for discharge to home. Patient in stable condition, ID band removed. IV catheter removed, intact and dressing applied, no active bleeding. Rx informaion given. Patient educated on pain management. All belongings sent with patient.
== END 2023-05-01 11:20 | disposition home or self-care (01) | DRG 141 ==
LOC: SED 11:58 → STU 13:57 → SMU 05-01 10:06
PROVIDERS: ADMIT Preventive Medicine Preventive Medicine/Occupational Environmental Medicine; ATTEND Preventive Medicine Preventive Medicine/Occupational Environmental Medicine
PROC: 5A09357 Assistance with Respiratory Ventilation, Less than 24 Consecutive Hours, Continuous Positive Airway Pressure (ICD-10-PCS; principal; 2023-04-29)
DX: J45.901 Unspecified asthma with (acute) exacerbation (principal); J96.00 Acute respiratory failure, unspecified whether with hypoxia or hypercapnia; R65.11 Systemic inflammatory response syndrome (SIRS) of non-infectious origin with acute organ dysfunction; J90 Pleural effusion, not elsewhere classified; F17.210 Nicotine dependence, cigarettes, uncomplicated; F41.9 Anxiety disorder, unspecified; F15.10 Other stimulant abuse, uncomplicated; Z59.00 Homelessness unspecified
CPT/HCPCS: 36415; 71045; 76604; 80053; 83615; 83880; 84484; 85025; 85610-TC; 85730-TC; 93005; 94640; 94660; 94664; 94760; 96365; 96372; 96375; 99291; G0378; J0171; J1030; J2060; J2405; J2930; J3475; J7613

== ENCOUNTER 2024-04-10 04:25 | Emergency (ER) | payer MEDICAID ==
[~2024-04-10] VITALS: Ht 175.3 cm; Wt 72.6 kg
[~2024-04-10 04:25] MED LIST changes: -ALBU2.5V7 INH; -ALBU8.5H8 INH; +PRED10TA PO; -[UNRECOGNIZED DRUG - CODE] PO
[2024-04-10 04:38] VITALS: BP_SYST 128; PULSE 89; RESP 18; TEMP 98.1; O2SAT 98
[2024-04-10] MEDS ORDERED: BACITRACIN 1 GM OINT TP ONE (05:08)
[2024-04-10 05:21] VITALS: BP_SYST 115; PULSE 74; RESP 20; TEMP 98.9; O2SAT 96
== END 2024-04-10 05:16 | disposition home or self-care (01) ==
LOC: SED 04:25
DX: S61.012A Laceration without foreign body of left thumb without damage to nail, initial encounter (principal); J45.909 Unspecified asthma, uncomplicated; Z79.899 Other long term (current) drug therapy; Z79.2 Long term (current) use of antibiotics; W26.0XXA Contact with knife, initial encounter; Y93.89 Activity, other specified; Y92.89 Other specified places as the place of occurrence of the external cause; Y99.8 Other external cause status
CPT/HCPCS: 99282

== ENCOUNTER 2024-04-18 02:45 | Emergency (ER) | payer MEDICAID ==
[~2024-04-18] VITALS: Ht 175.3 cm; Wt 72.6 kg
[2024-04-18 02:57] VITALS: BP_SYST 128; PULSE 100; RESP 19; TEMP 97.6; O2SAT 96
[2024-04-18] MEDS: PERMETHRIN 1% TP ONE (03:01)
[2024-04-18] MEDS: PERMETHRIN 5% 60 GM CREAM.GM. TP ONE (03:02)
[2024-04-18] MEDS ORDERED: PERM60CR18 TP (03:05)
== END 2024-04-18 03:11 | disposition home or self-care (01) ==
LOC: SED 02:45
DX: B86 Scabies (principal); R21 Rash and other nonspecific skin eruption; J45.909 Unspecified asthma, uncomplicated; F17.200 Nicotine dependence, unspecified, uncomplicated; Z79.899 Other long term (current) drug therapy; Z79.2 Long term (current) use of antibiotics
CPT/HCPCS: 99282

== ENCOUNTER 2024-05-24 19:20 | Inpatient (IN) | payer MEDICAID ==
[~2024-05-24] VITALS: Ht 175.3 cm; Wt 71.3 kg
[~2024-05-24 19:20] MED LIST changes: +PERM60CR18 TP
[2024-05-24 19:36] VITALS: BP_SYST 138; PULSE 97; RESP 18; TEMP 97.8; O2SAT 95
[2024-05-24] MEDS: IPRATROPIUM/ALBUTEROL SULFATE 3 ML AMPUL.NEB (DUONEB) INH ONE (19:51)
[2024-05-24] MEDS: predniSONE 20 MG TABLET PO ONE (20:04)
[2024-05-24 21:24] LABS: BASOPHILS % (AUTO) 0.4 % (0.0-2.0); EOSINOPHILS # (AUTO) 0.3 K/uL (0.0-0.4); EOSINOPHILS % (AUTO) 4.4 % (0.0-4.0); HEMATOCRIT 37.7 % (36-54); LYMPHOCYTES # (AUTO) 0.9 K/uL (1.0-5.5); LYMPHOCYTES % (AUTO) 12.7 % (20.5-51.5); MEAN CORPUSCULAR HEMOGLOBIN 28 pg (27-31); MEAN CORPUSCULAR HGB CONC 34 % (32-36); MEAN CORPUSCULAR VOLUME 81 fL (79.0-98.0); MONOCYTES # (AUTO) 0.8 K/uL (0.0-1.0); NEUTROPHILS # (AUTO) 4.8 K/uL (1.8-7.7); NEUTROPHILS % (AUTO) 70.5 % (40.0-70.0); PLATELET COUNT (AUTO) 180 K/uL (130-430); RED BLOOD CELL COUNT(AUTO) 4.64 MIL/uL (4.2-6.2); RED CELL DISTRIBUTION WIDTH 15.5 % (9.0-15.0); WHITE BLOOD COUNT (AUTO) 6.7 K/uL (4.8-10.8)
[2024-05-24 21:32] LABS: CREATININE 1.21 mg/dL (0.55-1.30); POTASSIUM 3.5 mmol/L (3.5-5.1)
[2024-05-24] MEDS ORDERED: ACYCLOVIR IV SCH (22:00)
[2024-05-24] MEDS ORDERED: D5W IV SCH (22:00)
[2024-05-24] MEDS ORDERED: MAGNESIUM SULFATE 1 GM/2 ML VIAL IVP ONE (22:30)
[2024-05-24 23:33] VITALS: BP_SYST 157; PULSE 88; RESP 18; TEMP 97.7
[2024-05-24] MEDS: PANTOPRAZOLE SODIUM 40 MG/VIAL (PROTONIX) IVP ONE (23:39)
[2024-05-24] MEDS: MAGNESIUM SULFATE 1 GM/100 ML IV ONE (23:40)
[2024-05-25] VITALS (8 sets, daily range): BP systolic 147–150; PULSE 88–98; RESP 18; TEMP 97.9; O2SAT 91–96
[2024-05-25] MEDS: AZITHROMYCIN 500 MG/VIAL (ZITHROMAX) IV ONE (00:51)
[2024-05-25] MEDS: AZITHROMYCIN 500 MG in NS 250 ML IV SCH (01:20)
[2024-05-25] MEDS: IPRATROPIUM/ALBUTEROL SULFATE 3 ML AMPUL.NEB (DUONEB) INH SCH (04:04)
[2024-05-25] MEDS: METHYLPREDNISOLONE SOD SUCC 40 MG/ML VIAL IVP SCH (05:47)
[2024-05-25] MEDS: IPRATROPIUM/ALBUTEROL SULFATE 3 ML AMPUL.NEB (DUONEB) INH PRN (07:50)
[2024-05-25] MEDS ORDERED: MAGNESIUM SULFATE 1 GM/2 ML VIAL IVP ONE (09:45)
[2024-05-25] MEDS: BUDESONIDE 0.5 MG/2 ML AMPUL.NEB INH ONE (09:48)
[2024-05-25] MEDS ORDERED: LORazepam 2 MG/ML VIAL IM PRN (10:00)
[2024-05-25] MEDS ORDERED: LORazepam 2 MG/ML VIAL IVP PRN (10:15)
[2024-05-25] MEDS: MAGNESIUM SULFATE 50 ML IV ONE (10:40)
[2024-05-25] MEDS ORDERED: hydrALAZINE HCL 20 MG/ML VIAL IVP PRN (11:45)
[2024-05-25 11:55] LABS: ABG O2 SAT% ESTIMATE 94.4 % (94.0-100.0); BLOOD GAS PH 7.461 (7.350-7.450)
[2024-05-25 12:00] LABS: ALLEN'S TEST POSITIVE (P)
[2024-05-25] MEDS ORDERED: METHYLPREDNISOLONE SOD SUCC 40 MG/ML VIAL IVP SCH (12:00)
[2024-05-25 12:02] LABS: BLOOD GAS BASE EXCESS -0.9 mmol/L (-3.0-3.0); BLOOD GAS PCO2 31.5 mmHg (32.0-45.0); BLOOD GAS PO2 66.4 mmHg (75.0-100.0)
[2024-05-25 12:20] LABS: BASOPHILS % (AUTO) 0.1 % (0.0-2.0); EOSINOPHILS % (AUTO) 0.2 % (0.0-4.0); HEMATOCRIT 38.9 % (36-54); HEMOGLOBIN 13.2 g/dL (14.0-18.0); LYMPHOCYTES # (AUTO) 0.8 K/uL (1.0-5.5); MEAN CORPUSCULAR HEMOGLOBIN 27 pg (27-31); MEAN CORPUSCULAR HGB CONC 34 % (32-36); MEAN CORPUSCULAR VOLUME 81 fL (79.0-98.0); MONOCYTES % (AUTO) 10.3 % (1.7-9.3); NEUTROPHILS # (AUTO) 7.6 K/uL (1.8-7.7); NEUTROPHILS % (AUTO) 80.4 % (40.0-70.0); PLATELET COUNT (AUTO) 189 K/uL (130-430); RED BLOOD CELL COUNT(AUTO) 4.82 MIL/uL (4.2-6.2); RED CELL DISTRIBUTION WIDTH 15.4 % (9.0-15.0)
[2024-05-25 12:21] LABS: WHITE BLOOD COUNT (AUTO) 9.4 K/uL (4.8-10.8)
[2024-05-25 12:39] LABS: ALBUMIN 3.6 g/dL (3.4-4.8); CREATININE 0.92 mg/dL (0.55-1.30); POTASSIUM 4.1 mmol/L (3.5-5.1); TOTAL BILIRUBIN 0.4 mg/dL (0.0-1.0); TOTAL PROTEIN, SERUM 6.8 g/dL (6.4-8.3)
[2024-05-25 13:28] LABS: BARBITURATE, URINE NEGATIVE (NEG <=200)
[2024-05-25 13:29] LABS: BENZODIAZEPINE, URINE NEGATIVE (NEG <=150); CANNABINOID, URINE NEGATIVE (NEG <=50); COCAINE, URINE NEGATIVE (NEG <=150); METHAMPHETAMINES SCREEN,URINE NEGATIVE (NEG <=500); OPIATE, URINE NEGATIVE (NEG <=100); PHENCYCLIDINE SCREEN,URINE NEGATIVE (NEG <=25); URINE AMPHETAMINE POSITIVE (NEG <=500); URINE METHADONE NEGATIVE (NEG <=200); URINE OXYCODONE SCREEN NEGATIVE (NEG <=100)
[2024-05-25 13:30] LABS: UR TRICYCLIC ANTIDEPRESSANTS NEGATIVE (NEG <=300)
[2024-05-25] MEDS ORDERED: BUDESONIDE 0.5 MG/2 ML AMPUL.NEB INH SCH ×2 (19:00→21:00)
== END 2024-05-25 13:06 | disposition left against medical advice (07) | DRG 141 ==
LOC: SED 19:20 → STU 22:18
PROVIDERS: ADMIT Family Medicine; ATTEND Family Medicine
DX: J45.51 Severe persistent asthma with (acute) exacerbation (principal); J96.01 Acute respiratory failure with hypoxia; T38.0X6A Underdosing of glucocorticoids and synthetic analogues, initial encounter; Z20.822 Contact with and (suspected) exposure to COVID-19; Z79.899 Other long term (current) drug therapy; Z79.51 Long term (current) use of inhaled steroids; Z59.00 Homelessness unspecified; Y92.89 Other specified places as the place of occurrence of the external cause
CPT/HCPCS: 36415; 36600; 71045; 80048; 80053; 80307; 82803; 85025; 87040; 94640; 94760; 96365; 99285; G0378; J0456; J1030; J2470; J3475; J7050; J7512; J7626

== ENCOUNTER 2024-08-02 12:20 | Emergency (ER) | payer MEDICAID ==
[2024-08-02 12:25] VITALS: BP_SYST 165; PULSE 95; O2SAT 92
[2024-08-02] MEDS ORDERED: IPRATROPIUM/ALBUTEROL SULFATE 3 ML AMPUL.NEB (DUONEB) ONE (12:29)
[2024-08-02] MEDS: IPRATROPIUM/ALBUTEROL SULFATE 3 ML AMPUL.NEB (DUONEB) INH ONE ×2 (12:36→13:06)
[2024-08-02] MEDS: methylPREDNISolone SOD SUCC/PF 62.5 MG/ML VIAL IVP ONE (12:46)
[2024-08-02] MEDS: MAGNESIUM SULFATE 50 ML IV ONE (12:47)
[2024-08-02] MEDS ORDERED: PRED20TA PO (14:02)
[2024-08-02] MEDS ORDERED: ALBMDI INH (14:02)
[2024-08-02 14:54] VITALS: BP_SYST 146; PULSE 89; RESP 18; TEMP 97.2; O2SAT 94
== END 2024-08-02 14:51 | disposition home or self-care (01) ==
LOC: SED 12:20
DX: J45.901 Unspecified asthma with (acute) exacerbation (principal); Z59.00 Homelessness unspecified; Z79.52 Long term (current) use of systemic steroids; Z79.51 Long term (current) use of inhaled steroids; Z79.899 Other long term (current) drug therapy
CPT/HCPCS: 71045; 94640; 96365; 96366; 96375; 99284; J2930; J3475

== ENCOUNTER 2024-08-15 20:51 | Emergency (ER) | payer MEDICAID ==
[~2024-08-15] VITALS: Ht 175.3 cm; Wt 72.6 kg
[2024-08-15 21:07] VITALS: BP_SYST 135; PULSE 89; RESP 24; TEMP 98.1; O2SAT 95
[2024-08-15] MEDS: IPRATROPIUM/ALBUTEROL SULFATE 3 ML AMPUL.NEB (DUONEB) INH ONE (21:18)
[2024-08-15] MEDS: methylPREDNISolone SOD SUCC/PF 62.5 MG/ML VIAL IVP ONE (21:27)
[2024-08-15 21:44] LABS: BASOPHILS # (AUTO) 0.2 K/uL (0.0-0.2); EOSINOPHILS # (AUTO) 0.7 K/uL (0.0-0.4); EOSINOPHILS % (AUTO) 7.7 % (0.0-4.0); HEMATOCRIT 42.2 % (36-54); HEMOGLOBIN 14.7 g/dL (14.0-18.0); LYMPHOCYTES # (AUTO) 1.8 K/uL (1.0-5.5); LYMPHOCYTES % (AUTO) 18.9 % (20.5-51.5); MEAN CORPUSCULAR HEMOGLOBIN 28 pg (27-31); MEAN CORPUSCULAR HGB CONC 35 % (32-36); MEAN CORPUSCULAR VOLUME 79 fL (79.0-98.0); MONOCYTES # (AUTO) 0.8 K/uL (0.0-1.0); MONOCYTES % (AUTO) 8.2 % (1.7-9.3); NEUTROPHILS % (AUTO) 63.2 % (40.0-70.0); PLATELET COUNT (AUTO) 205 K/uL (130-430); RED BLOOD CELL COUNT(AUTO) 5.32 MIL/uL (4.2-6.2); WHITE BLOOD COUNT (AUTO) 9.6 K/uL (4.8-10.8)
[2024-08-15 21:56] LABS: ANION GAP 4 (5-15); CALCIUM 8.8 mg/dL (8.4-11.0); CARBON DIOXIDE 35 mmol/L (23-29); CHLORIDE 107 mmol/L (98-107); CREATININE 1.42 mg/dL (0.55-1.30); GFR AFRICAN AMERICAN 74 mL/min (>90); GLUCOSE 68 mg/dL (74-106); SODIUM SERUM 146 mmol/L (136-145); UREA NITROGEN, BLOOD 17 mg/dL (8-21)
[2024-08-15 21:57] LABS: ALCOHOL, BLOOD < 3 mg/dL (<10); GFR NON AFRICAN-AMERICAN 61 mL/min (>90)
[2024-08-15 22:05] LABS: BARBITURATE, URINE NEGATIVE (NEG <=200); BENZODIAZEPINE, URINE NEGATIVE (NEG <=150); CANNABINOID, URINE NEGATIVE (NEG <=50); COCAINE, URINE NEGATIVE (NEG <=150); METHAMPHETAMINES SCREEN,URINE POSITIVE (NEG <=500); OPIATE, URINE NEGATIVE (NEG <=100); PHENCYCLIDINE SCREEN,URINE NEGATIVE (NEG <=25); UR TRICYCLIC ANTIDEPRESSANTS NEGATIVE (NEG <=300); URINE AMPHETAMINE POSITIVE (NEG <=500); URINE METHADONE NEGATIVE (NEG <=200); URINE OXYCODONE SCREEN NEGATIVE (NEG <=100)
[2024-08-15] MEDS ORDERED: PRED20TA PO (22:41)
[2024-08-15] MEDS ORDERED: ALBMDI INH (22:41)
[2024-08-15 23:00] VITALS: BP_SYST 141; PULSE 77; RESP 13; TEMP 98.4; O2SAT 92
== END 2024-08-15 23:00 | disposition home or self-care (01) ==
LOC: SED 20:51
DX: J45.901 Unspecified asthma with (acute) exacerbation (principal); F19.10 Other psychoactive substance abuse, uncomplicated; F17.200 Nicotine dependence, unspecified, uncomplicated; R03.0 Elevated blood-pressure reading, without diagnosis of hypertension; Z79.51 Long term (current) use of inhaled steroids; Z79.52 Long term (current) use of systemic steroids; Z79.899 Other long term (current) drug therapy
CPT/HCPCS: 99285; 96374; 71045; 80307; 80048; 83880; 85025; 84484; 36415; 93005; 94640; G0482; J2930